=== PATIENT | male | born 1950 | race Two or more races ===

== ENCOUNTER 2016-10-30 16:41 | Emergency (ER) | payer MEDICARE, BC ==
[2016-10-30] MEDS ORDERED: HYDROCODONE/APAP 7.5/325MG TABLET PO ONE (17:04)
--- NOTE | 2016-10-30 17:04 | Emergency Department Record ---
History of Present Illness - General Chief complaint: Flank Pain Stated complaint: FLANK PAIN Time Seen by Provider: 10/30/16 16:57 Source: Patient, Family Mode of Arrival: Wheelchair Limitations: No limitations - History of Present Illness Initial comments: 66 yo male presents with right flank pain for about the last 3 weeks. No vomiting. No obvious blood in the urine. He has a history of ESRD on HD. He had dialysis today. No cough. NO fevers or chills. He has had back adjustments but he pain has continued. The pain initially started getting out of a truck and he feels like something pulled. The pain is constant and worse with movements. He saw his PCP Dr Chand on Tuesday. The patient states the thought at that time was the pain is in the muscles likely. No rash. No changes in appetite. MD Complaint: Other (Right flank pain) Onset/Timin -: Days(s) Location: Right flank Radiation: Suprapubic, R flank Severity scale (1-10): 9 Quality: Burning, Sharp Consistency: Constant Improves with: None Worsens with: None Reports: Denies other symptoms, Urinary retention, Other - Related Data Home Medications Medication Instructions Recorded Confirmed Last Taken Sevelamer Carbonate [Renvela] 800 mg PO TID 07/19/15 10/30/16 10/30/16 Hydralazine HCl 50 mg PO DAILY 11/12/15 10/30/16 10/30/16 Insulin Aspart [Novolog] 1 unit SQ ASDIR 11/12/15 10/30/16 10/30/16 Insulin NPH Human Isophane 40 unit SQ BID 11/12/15 10/30/16 10/30/16 [Humulin N] Atorvastatin Calcium [Lipitor] 10 mg PO QHS 03/06/16 10/30/16 10/30/16 Carvedilol [Carvedilol] 25 mg PO BID 03/06/16 10/30/16 10/30/16 Clopidogrel Bisulfate [Plavix] 75 mg PO DAILY 03/06/16 10/30/16 10/29/16 Gabapentin [Gabapentin] 200 mg PO QHS 03/06/16 10/30/16 10/29/16 Losartan Potassium [Cozaar] 100 mg PO DAILY 03/06/16 10/30/16 10/30/16 Quetiapine Fumarate [Seroquel] 25 mg PO QHS 03/06/16 10/30/16 10/29/16 Previous Rx's Medication Instructions Recorded Hyoscyamine Sulfate [Levsin-Sl] 0.25 mg SL Q8H PRN #15 tab.subl 03/09/16 Ondansetron [Zofran Odt] 4 mg PO Q6H PRN #20 tab.rapdis 03/09/16 Cephalexin [Keflex] 500 mg PO TID #21 cap 10/30/16 Hydrocodone/Acetaminophen [[place] 0.5 - 1 tab PO TID PRN #12 tab 10/30/16 5mg/325mg] Allergies Allergy/AdvReac Type Severity Reaction Status Date / Time codeine [CODEINE] Allergy Intermediate RASH Verified 11/12/15 15:14 hydrocodone [HYDROCODONE] Allergy Intermediate RASH Verified 11/12/15 15:14 propoxyphene [PROPOXYPHENE] Allergy Intermediate RASH Verified 11/12/15 15:14 Travel Screening - Travel/Exposure Within Last 30 Days Have you traveled within the last 30 days?: No - Travel/Exposure Within Last Year Have you traveled outside the [place] in the last year?: No - Additonal Travel Details Have you been exposed to anyone with a communicable illness?: No Review of Systems Constitutional: Denies: Chills, Fever, Malaise, Weakness Eyes: Denies: Eye discharge, Eye pain, Photophobia, Vision change ENT: Denies: Congestion, Throat pain Respiratory: Denies: Cough, Dyspnea, Hemoptysis, Stridor, Wheezes Cardiovascular: Denies: Chest pain, Palpitations, Syncope Endocrine: Denies: Fatigue Gastrointestinal: Denies: Abdominal pain, Diarrhea, Nausea, Vomiting Genitourinary: Denies: Dysuria, Frequency, Hematuria Musculoskeletal: Reports: Back pain, Myalgia. Denies: Arthralgia, Joint swelling, Neck pain Skin: Denies: Bruising, Change in color, Rash Neurological: Denies: Headache Psychiatric: Denies: Anxiety Hematological/Lymphatic: Denies: Blood Clots, Easy bleeding, Easy bruising, Swollen glands Past Medical History - SOCIAL HISTORY Smoking Status: Never smoker Alcohol Use: None Drug Use: None - RESPIRATORY Hx Respiratory Disorders: Yes - CARDIOVASCULAR Hx Cardio Disorders: Yes Hx CHF: Yes Hx Edema: Yes Hx Hypertension: Yes - NEURO Hx Neuro Disorders: No - GI Hx GI Disorders: Yes Hx Hepatitis/Jaundice: Yes (hepatitis C) - Hx Genitourinary Disorders: Yes Hx Renal Disease: Yes Hx UTI: Yes (recently) Comment:: On Dialysis 3 times a week - ENDOCRINE Hx Endocrine Disorders: Yes Hx Diabetes: Yes - MUSCULOSKELETAL Hx Musculoskeletal Disorders: Yes Hx Arthritis: Yes (hands) - PSYCH Hx Psych Problems: No - HEMATOLOGY/ONCOLOGY Hx Hematology/Oncology Disorders: No Hx Blood Transfusions: No Family Medical History Any Significant Family History?: No Hx Diabetes: Mother, Brother/Sister Hx HTN: Father, Brother/Sister Hx Stroke: Mother, Brother/Sister Physical Exam - General General Appearance: Alert, Oriented x3, Cooperative, No acute distress Limitations: No limitations - Head Head exam: Normal inspection - Eye Eye exam: Normal appearance. negative: Conjunctival injection - ENT ENT exam: Normal exam Ear exam: Normal external inspection Nasal Exam: Normal inspection Mouth exam: Normal external inspection - Neck Neck exam: Normal inspection, Full ROM. negative: Tenderness - Respiratory Respiratory exam: Normal lung sounds bilaterally. negative: Respiratory distress - Cardiovascular Cardiovascular Exam: Regular rate, Normal rhythm, Normal heart sounds, Other ( right upper extremety fistula intact) - GI/Abdominal GI/Abdominal exam: Soft. negative: Diminished bowel sounds, Distended, Hyperactive bowel sounds, Rigid, Tenderness - Rectal Rectal exam: Deferred - exam: Deferred - Extremities Extremities exam: Normal inspection, Full ROM, Normal capillary refill, Other ( RBKA). negative: Tenderness - Back Back exam: Reports: CVA tenderness (R), Full ROM, Muscle spasm, Paraspinal tenderness, Tenderness. Denies: CVA tenderness (L) Image of Body Front/Back: 1 - normal inspection, no rash, no redness, no swelling, mildly tender to palpation - Neurological Neurological exam: Alert, Oriented X3 - Psychiatric Psychiatric exam: Normal affect, Normal mood - Skin Skin exam: Dry, Intact, Normal color, Warm Course - Reevaluation(s) Reevaluation #1: Vitals reviewed No fever 10/30/16 17:07 Reevaluation #2: UA reviewed. Protein present, Large Blood, trace LE 10/30/16 17:43 Reevaluation #3: Micro UA with few bacteria, 15-20 WBC, 10/30/16 18:21 Reevaluation #4: The CT scan report was reviewed. No acute findings. Cirrhosis, varices, cholelithiasis, intra-renal stone noted. No acute process or changes. 10/30/16 18:47 Reevaluation #5: ammonia is 11 CR is 2.8 The LFT's were negative The patient does not have a fever, no elevated WBC count, renal function and hepatic function at baseline He is to call Dr Chand first of the week to discuss his ongoing back for the last 3 weeks. 10/30/16 18:54 10/30/16 18:57 Medical Decision Making - Lab Data Result diagrams: 10/30/16 17:40 10/30/16 18:15 Disposition Disposition: Discharge Clinical Impression: Back pain Qualifiers: Back pain location: low back pain Chronicity: acute Back pain laterality: right Sciatica presence: without sciatica Qualified Code(s): M54.5 - Low back pain Urinary tract infection Qualifiers: Urinary tract infection type: acute cystitis Hematuria presence: with hematuria Qualified Code(s): N30.01 - Acute cystitis with hematuria Disposition: Home, Self-Care Condition: (1) Good Instructions: Flank Pain (ED), Urinary Tract Infection in Men (ED) Additional Instructions: Return if worse, uncontrolled pain, fever, vomiting, rash, or any new concerns or symptoms Call Dr Chand Tuesday for close follow up Prescriptions: Cephalexin [Keflex] 500 mg PO TID #21 cap Hydrocodone/Acetaminophen [[place] 5mg/325mg] 0.5 - 1 tab PO TID PRN #12 tab PRN Reason: Pain - General Forms: Patient Portal Access Time of Disposition: 18:58
[2016-10-30 17:32] LABS: URINE BILIRUBIN SMALL (NEGATIVE); URINE BLOOD LARGE (NEGATIVE); URINE GLUCOSE (UA) NEGATIVE (NEGATIVE); URINE KETONE NEGATIVE (NEGATIVE); URINE LEUKOCYTE ESTERASE TRACE (NEGATIVE); URINE NITRITE NEGATIVE (NEGATIVE); URINE UROBILINOGEN 0.2 E.U./dL (0.20 - 1.00)
[2016-10-30 17:34] LABS: URINE APPEARANCE SL CLOUDY; URINE COLOR STRAW
[2016-10-30 17:45] LABS: URINE BACTERIA FEW; URINE RBC >50 (NONE SEEN); URINE WBC 16 - 20 (0-2/hpf)
[2016-10-30 17:46] LABS: URINE FINE GRANULAR CAST FEW /lpf
[2016-10-30 18:15] LABS: HEMATOCRIT 38.8 % (42.0-52.0); HEMOGLOBIN 12.5 gm/dl (14.0-18.0); MEAN CELL VOLUME 89.2 fl (81-97); MEAN CORPUSCULAR HEMOGLOBIN 28.7 pg (27-33); MEAN CORPUSCULAR HGB CONC 32.2 g/dl (32-36); MEAN PLATELET VOLUME 10.7 fl (7.4-10.4); PLATELET COUNT 70 K/uL (130-400); RED BLOOD COUNT 4.35 M/uL (4.40-5.70); RED CELL DISTRIBUTION WIDTH 16.5 % (11.5-14.5); WHITE BLOOD COUNT W/O DIFF 6.1 K/uL (4.2-12.2)
[2016-10-30 18:51] LABS: AMMONIA 11.9 umol/L (9-30); ANION GAP 9.6 (7-16); CARBON DIOXIDE 29.4 mmol/L (22-30); CREATININE 2.8 mg/dL (0.66-1.25)
[2016-10-30 18:54] LABS: TOTAL PROTEIN 8.2 gm/dL (6.3-8.2)
[2016-10-30 18:55] LABS: PLATELET ESTIMATE DECREASED (NORMAL)
[2016-10-30 18:55] LABS: ALBUMIN 3.5 gm/dL (3.5-5.0); BILIRUBIN,TOTAL 1.4 mg/dL (0.2-1.3)
[2016-10-30] MEDS ORDERED: CEPHALEXIN 500 MG CAPSULE PO STA (18:55)
== END 2016-10-30 19:11 | disposition home or self-care (01) ==
LOC: ER 16:41
DX: N30.01 Acute cystitis with hematuria (principal); M54.5 Low back pain; R10.31 Right lower quadrant pain
CPT/HCPCS: 74176; 80048; 80076; 81001; 82140; 85027; 99283; 99284

== ENCOUNTER 2017-02-23 21:30 | Emergency (ER) | payer MEDICARE, BC ==
[2017-02-23] MEDS ORDERED: ONDANSETRON HCL IV 4 MG/2 ML VIAL IVP ONE (21:38)
[2017-02-23] MEDS ORDERED: MORPHINE SULFATE 5 MG/ML PFS IVP ONE (21:38)
--- NOTE | 2017-02-23 21:43 | Emergency Department Record ---
History of Present Illness - General Chief Complaint: Back Pain/Injury Stated Complaint: LOWER RT BACK PAIN Time Seen by Provider: 02/23/17 21:37 Source: Patient Mode of Arrival: Wheelchair Limitations: No limitations - History of Present Illness Initial Comments: 66 yo male presents to ED with a CC of left sided flank pain that has become progressively worse since yesterday. Patient denies nausea or vomiting symptoms , denies fevers, chills, or urinary symptoms. Patient denies trauma or injury. Patient denies previous history of kidney stones. Patient reports that he received dialysis yesterday and is due tomorrow. MD Complaint: Back pain Onset/Timin -: Days(s) Similar Symptoms Previously: No Radiation: None Severity: Moderate Quality: Aching Consistency: Constant Improves With: None Worsens With: Movement Context: Unknown Associated Symptoms: Denies other symptoms - Related Data Home Medications Medication Instructions Recorded Confirmed Last Taken Sevelamer Carbonate [Renvela] 800 mg PO BID 07/19/15 02/23/17 10/30/16 Insulin Aspart [Novolog] 1 unit SQ ASDIR 11/12/15 02/23/17 10/30/16 Insulin NPH Human Isophane 40 unit SQ BID 11/12/15 02/23/17 10/30/16 [Humulin N] Atorvastatin Calcium [Lipitor] 10 mg PO QHS 03/06/16 02/23/17 10/30/16 Carvedilol [Carvedilol] 12.5 mg PO BID 03/06/16 02/23/17 10/30/16 Clopidogrel Bisulfate [Plavix] 75 mg PO DAILY 03/06/16 02/23/17 10/29/16 Gabapentin [Gabapentin] 200 mg PO QHS 03/06/16 02/23/17 10/29/16 Quetiapine Fumarate [Seroquel] 25 mg PO QHS 03/06/16 02/23/17 10/29/16 Clonidine HCl 0.1 mg PO BID 02/23/17 02/23/17 Unknown Doxycycline Hyclate [Doxycycline] 100 mg PO BID 02/23/17 02/23/17 Unknown Gabapentin [Neurontin] 100 mg PO TID 02/23/17 02/23/17 Unknown Lactulose [Lactulose] 10 gm PO ASDIR 02/23/17 02/23/17 Unknown Levetiracetam [Keppra] 250 mg PO ASDIR 02/23/17 02/23/17 Unknown Levetiracetam [Keppra] 500 mg PO BID 02/23/17 02/23/17 Unknown Previous Rx's Medication Instructions Recorded Ondansetron [Zofran Odt] 4 mg PO Q6H PRN #20 tab.rapdis 03/09/16 Hydrocodone/Acetaminophen [[place] 0.5 - 1 tab PO TID PRN #12 tab 10/30/16 5mg/325mg] Hydrocodone/Acetaminophen [[place] 1 each PO Q6H PRN #10 tablet 02/23/17 5-325 Tablet] Allergies Allergy/AdvReac Type Severity Reaction Status Date / Time codeine [CODEINE] Allergy Intermediate RASH Verified 11/12/15 15:14 propoxyphene [PROPOXYPHENE] Allergy Intermediate RASH Verified 11/12/15 15:14 Review of Systems Constitutional: Denies: Chills, Fever, Malaise, Night sweats Eyes: Denies: Eye discharge, Eye pain ENT: Denies: Congestion, Ear pain, Epistaxis Respiratory: Denies: Cough, Dyspnea Cardiovascular: Denies: Chest pain, Dyspnea on exertion Endocrine: Denies: Fatigue, Heat or cold intolerance Gastrointestinal: Denies: Abdominal pain, Nausea, Vomiting Genitourinary: Denies: Dysuria, Frequency, Hematuria, Testicular pain, Testicular mass Musculoskeletal: Reports: Back pain. Denies: Arthralgia, Gout, Joint swelling Skin: Denies: Bruising, Change in color Neurological: Denies: Abnormal gait, Confusion, Headache, Seizure Psychiatric: Denies: Anxiety Hematological/Lymphatic: Denies: Anemia, Blood Clots Past Medical History - SOCIAL HISTORY Smoking Status: Never smoker Drug Use: None - RESPIRATORY Hx Respiratory Disorders: Yes - CARDIOVASCULAR Hx Cardio Disorders: Yes Hx CHF: Yes Hx Edema: Yes Hx Hypertension: Yes - NEURO Hx Neuro Disorders: No - GI Hx GI Disorders: Yes Hx Hepatitis/Jaundice: Yes (hepatitis C) - Hx Genitourinary Disorders: Yes Hx Renal Disease: Yes Hx UTI: Yes (recently) Comment:: On Dialysis 3 times a week - ENDOCRINE Hx Endocrine Disorders: Yes Hx Diabetes: Yes - MUSCULOSKELETAL Hx Musculoskeletal Disorders: Yes Hx Arthritis: Yes (hands) - PSYCH Hx Psych Problems: No - HEMATOLOGY/ONCOLOGY Hx Hematology/Oncology Disorders: No Hx Blood Transfusions: No Family Medical History Hx Diabetes: Mother, Brother/Sister Hx HTN: Father, Brother/Sister Hx Stroke: Mother, Brother/Sister Physical Exam - General General Appearance: Alert, Oriented x3, Cooperative, Moderate distress Limitations: No limitations - Head Head exam: Atraumatic, Normocephalic, Normal inspection Head exam detail: negative: Abrasion, Contusion, Smith's sign, General tenderness, Hematoma, Laceration - Eye Eye exam: Normal appearance. negative: Conjunctival injection, Periorbital swelling, Periorbital tenderness, Scleral icterus - ENT Ear exam: negative: Auricular hematoma, Auricular trauma Nasal Exam: negative: Active bleeding, Discharge, Dried blood, Foreign body Mouth exam: negative: Drooling, Laceration, Muffled voice, Tongue elevation - Neck Neck exam: Normal inspection. negative: Meningismus, Tenderness - Respiratory Respiratory exam: Normal lung sounds bilaterally. negative: Rales, Respiratory distress, Rhonchi, Stridor - Cardiovascular Cardiovascular Exam: Regular rate, Normal rhythm, Normal heart sounds - GI/Abdominal GI/Abdominal exam: Soft. negative: Rebound, Rigid, Tenderness - Rectal Rectal exam: Deferred - exam: Deferred - Extremities Extremities exam: Other (BKA right, fistula RUE.). negative: Pedal edema, Tenderness - Back Back exam: Reports: CVA tenderness (R). Denies: CVA tenderness (L) - Neurological Neurological exam: Alert, Oriented X3 - Psychiatric Psychiatric exam: Normal affect, Normal mood - Skin Skin exam: Normal color. negative: Abrasion Type of lesion: negative: abrasion Course - Reevaluation(s) Reevaluation #1: 02/23/17 22:17 Labs reviewed, Hgb 10.6, BUN/Creatinine 43/6.2. Glucose 468. UA pending. CT Abdomen and Pelvis: Mild left sided hydronephrosis without evidence for ureteral calculus, may represent recently passed stone. Splenomegaly ( unchanged from previous), atheromatis disease. 02/23/17 22:21 Reevaluation #2: 02/23/17 22:37 UA reviewed: 16-25 RBCs, 3-5 WBCs, 3+ amorphous sediment, no bacteria are present. Patient reassessed and reports almost no pain at this time. Patient and his were updated on all results and the plan for discharge at this time. Patient appears stable for discharge. Medical Decision Making - Lab Data Result diagrams: 02/23/17 21:50 02/23/17 21:50 Disposition Disposition: Discharge Clinical Impression: Flank pain CRF (chronic renal failure) Qualifiers: Chronic kidney disease stage: stage 5 Qualified Code(s): N18.5 - Chronic kidney disease, stage 5 Disposition: Home, Self-Care Condition: (2) Stable Instructions: Flank Pain (ED) Additional Instructions: Return to ED if your symptoms worsen or if you have any concerns. Follow-up with your family doctor in 3-5 days as directed. Troy as directed. Prescriptions: Hydrocodone/Acetaminophen [[place] 5-325 Tablet] 1 each PO Q6H PRN #10 tablet PRN Reason: Pain - Moderate (5-7) Forms: Patient Portal Access Time of Disposition: 22:41 Quality - Quality Measures Quality Measures: N/A - Blood Pressure Screening Blood Pressure Classification: Pre-Hypertensive BP Reading Systolic Measurement: 187 Diastolic Measurement: 80 Screening for High Blood Pressure: < First Hypertensive BP, F/U Documented > [ [id number]] First Hypertensive Follow-up Interventions: Referral to alternative/primary care provider.
[2017-02-23 22:02] LABS: HEMATOCRIT 32.2 % (42.0-52.0); HEMOGLOBIN 10.6 gm/dl (14.0-18.0); MEAN CELL VOLUME 93.9 fl (81-97); MEAN CORPUSCULAR HEMOGLOBIN 30.9 pg (27-33); MEAN CORPUSCULAR HGB CONC 32.9 g/dl (32-36); MEAN PLATELET VOLUME 10.9 fl (7.4-10.4); PLATELET COUNT 74 K/uL (130-400); RED BLOOD COUNT 3.43 M/uL (4.40-5.70); RED CELL DISTRIBUTION WIDTH 15.4 % (11.5-14.5); WHITE BLOOD COUNT W/O DIFF 4.7 K/uL (4.2-12.2)
[2017-02-23 22:08] LABS: ALB/GLOB RATIO 0.7 (1.1-1.8); ALBUMIN 3.3 gm/dL (3.5-5.0); BILIRUBIN,TOTAL 1.47 mg/dL (0.2-1.3); CREATININE 6.2 mg/dL (0.66-1.25); INR 1.12; PROTHROMBIN TIME (PATIENT) 12.1 SECONDS (9.5-12.1)
[2017-02-23 22:23] LABS: URINE APPEARANCE CLEAR; URINE BILIRUBIN NEGATIVE (NEGATIVE); URINE BLOOD LARGE (NEGATIVE); URINE COLOR YELLOW; URINE KETONE NEGATIVE (NEGATIVE); URINE LEUKOCYTE ESTERASE NEGATIVE (NEGATIVE); URINE NITRITE NEGATIVE (NEGATIVE); URINE UROBILINOGEN 0.2 E.U./dL (0.20 - 1.00)
[2017-02-23 22:26] LABS: PLATELET ESTIMATE DECREASED (NORMAL)
[2017-02-23 22:27] LABS: URINE GLUCOSE (UA) >=1000 mg/dL (NEGATIVE)
[2017-02-23 22:36] LABS: URINE AMORPHOUS SEDIMENT 3+; URINE MUCUS LIGHT; URINE RBC 16 - 25 (NONE SEEN)
[2017-02-23] MEDS ORDERED: HYDROCODONE/APAP 5/325MG TABLET PO ONE (22:41)
--- NOTE | 2017-02-24 14:51 | CT SCAN REPORT ---
EXAM: CT OF THE ABDOMEN AND PELVIS WITHOUT CONTRAST HISTORY: LEFT FLANK PAIN. TECHNIQUE: CT of the abdomen and pelvis was performed without oral or IV contrast. This limits evaluation of bowel and solid visceral organs. Comparison: Prior CT from 10/30/16. FINDINGS: Limited evaluation of the lung bases shows gynecomastia. Atheromatous change of the thoracic aorta. Nodular, cirrhotic change to the liver. Multiple gallstones. Splenic granulomata. The spleen is enlarged, measuring 20 cm in length. Stable nodularity of the left adrenal gland. Limited evaluation of the pancreas is grossly unremarkable. Extensive varices of the upper abdomen. Multiple esophageal varices are also present. Punctate nonobstructing renal calculi bilaterally. In addition there is moderate left sided hydronephrosis and hydroureter, without definitive distal left ureteral calculus. Findings could relate to a recently passed stone. Correlate with urinalysis. Abundant stool in the colon. Occasional sigmoid diverticula without CT evidence for diverticulitis. Fat containing left inguinal hernia. The prostate is mildly enlarged. Rather extensive atheromatous change. IMPRESSION: 1. CIRRHOTIC CHANGE TO THE LIVER, BEFORE. SPLENOMEGALY AT 20 CM. EXTENSIVE VARICES THROUGHOUT THE UPPER ABDOMEN. 2. NONOBSTRUCTING RENAL CALCULI BILATERALLY. MILD LEFT SIDED HYDRONEPHROSIS AND HYDROURETER WITHOUT A DISCREET ETIOLOGY. FINDINGS COULD RELATE TO RECENTLY PASSED STONE. 3. CHOLELITHIASIS. ATHEROMATOUS CHANGE. JOB NUMBER: [id number] [facility]
== END 2017-02-23 22:55 | disposition home or self-care (01) ==
LOC: ER 21:30
DX: R10.32 Left lower quadrant pain (principal); M54.5 Low back pain; E11.22 Type 2 diabetes mellitus with diabetic chronic kidney disease; I12.0 Hypertensive chronic kidney disease with stage 5 chronic kidney disease or end stage renal disease; N18.6 End stage renal disease; N13.2 Hydronephrosis with renal and ureteral calculous obstruction; Z99.2 Dependence on renal dialysis; Z79.4 Long term (current) use of insulin
CPT/HCPCS: 99284 ×2; 96374; 96375; 85610; 80053; 81001; 85027; 74176; J2405; J2270

== ENCOUNTER 2017-03-11 07:27 | Day surgery (SDC) | payer MEDICARE, BC ==
[2017-03-11] MEDS ORDERED: PROPOFOL 10 MG/ML VIAL IV ONE (13:44)
[2017-03-11] MEDS ORDERED: FENTANYL PF 100MCG/2ML VIAL IV ONE (13:44)
[2017-03-11] MEDS ORDERED: LIDOCAINE 2% MDV (20MG/ML) 20ML VIAL IV ONE (13:44)
--- NOTE | 2017-03-17 12:40 | Operative Note ---
DATE OF SURGERY: 03/11/2017 REQUESTING PHYSICIAN: Everardo Chand DO SURGEON: Violeta Kern MD POSTOPERATIVE DIAGNOSES: 1. Grade 2 esophageal varices status post band ligation x 2. 2. Diffuse portal gastropathy. 3. Normal duodenum. 4. Three 6-10 mm sessile ascending colon polyps that were removed by cold snare and snare cautery. 5. A 3 mm colon polyp that was removed by cold biopsy forceps. 6. Grade 1 internal hemorrhoids. OPERATION: 1. ESOPHAGOGASTRODUODENOSCOPY. 2. COLONOSCOPY and exam. REASON FOR PROCEDURE: This is a 66-year-old male with a history of average risk for colorectal cancer and history of cirrhosis of the liver presenting for esophagogastroduodenoscopy for screening for esophageal varices and for colonoscopy. SEDATION: Sedation as per anesthesia. Pulse oximetry was monitored throughout the duration of the procedure to maintain O2 saturation of 90% or greater. Supplemental oxygen was administered via nasal cannula. Cardiac and vital signs were monitored throughout the duration of the procedure and they were stable. PROCEDURE: Description of the procedures of esophagogastroduodenoscopy and colonoscopy, risks and alternatives to the procedures including the risk of bleeding and perforation among others were explained to the patient who voiced understanding and decided to proceed. Physical examination was performed and the patient was found stable for sedation. The patient was then placed in the left lateral position and sedation was initiated. A plastic bite block was inserted into the oral cavity. A lubricated Olympus GIF-180 gastroscope was introduced into the oral cavity and advanced through the proximal esophagus without difficulty. The esophageal mucosa was carefully examined upon insertion of the gastroscope. The proximal esophageal mucosa appeared normal. In the mid and distal esophagus was grade 2 esophageal varices that were noted. The gastroscope was then advanced to the stomach. Serial examination of the stomach revealed diffuse erythema with edema involving the gastric fundus, body, and antrum with erosions in the gastric antrum. The gastroscope was then advanced to the descending duodenum without difficulty. The duodenal bulb and descending duodenal mucosa appeared normal. The gastroscope was then withdrawn into the stomach and retroflexion was performed. There were no other lesions noted. The gastroscope was then straightened and withdrawn, very carefully re-examining the gastric and esophageal mucosa and no other lesions were noted. Multiple gastric biopsies were obtained. Band ligator was then loaded onto the gastroscope and inserted into the distal esophagus and 2 band ligations were performed with no immediate complications. The gastroscope was then withdrawn and the procedure was terminated. The patient tolerated the procedures well without any complications. The patient remained with stable vital signs and was repositioned for colonoscopy. Digital rectal exam was performed and showed small external hemorrhoids with no palpable rectal masses. A lubricated Olympus PCF-180AL colonoscope was then inserted into the rectum under direct visualization and was advanced to the cecum without difficulty. The ileocecal valve and appendiceal orifice were identified and photographed. The colonic mucosa was carefully examined upon insertion of the colonoscope. There were three 6-10 mm sessile polyps in the ascending colon that were removed by cold snare, and a 10 mm one was removed by snare cautery. The colonoscope was then withdrawn while carefully examining the colonic mucosal surfaces. The bowel preparation was good. In the transverse colon was a 3 mm sessile polyp that was noted and was removed by cold biopsy forceps. No other lesions were noted. The colonoscopy was then withdrawn very carefully reexamining the colonic mucosa surfaces. No other lesions were noted. In the rectum on retroflexion, grade 1 internal hemorrhoids were noted. The colonoscope was then withdrawn and the procedure was terminated. The patient tolerated the procedure well without any complications. The patient remained with stable vital signs and was sent to the recovery room. PLAN AND RECOMMENDATIONS: 1. He is to continue on his medications. 2. He is to have a repeat colonoscopy for surveillance in 3 or 5 years depending on the histology of the polyps. Thank you for allowing me to participate in the care of this patient. CC: DO TEJINDER Silver
== END 2017-03-11 11:06 | disposition home or self-care (01) ==
LOC: HOP 07:27
PROVIDERS: ATTEND Internal Medicine Gastroenterology
DX: D12.2 Benign neoplasm of ascending colon (principal); D12.3 Benign neoplasm of transverse colon; K64.0 First degree hemorrhoids; K64.4 Residual hemorrhoidal skin tags; I85.00 Esophageal varices without bleeding; I10 Essential (primary) hypertension; E78.00 Pure hypercholesterolemia, unspecified; E11.9 Type 2 diabetes mellitus without complications; Z79.01 Long term (current) use of anticoagulants; Z79.4 Long term (current) use of insulin; Z79.84 Long term (current) use of oral hypoglycemic drugs; G40.909 Epilepsy, unspecified, not intractable, without status epilepticus
CPT/HCPCS: 45385; 45380; 43244; 43239; 00810; 88305; J3010

== ENCOUNTER 2017-06-17 01:12 | Emergency (ER) | payer MEDICARE, BC ==
--- NOTE | 2017-06-17 01:26 | Emergency Department Record ---
History of Present Illness - General Stated complaint: LOW SUGAR Time Seen by Provider: 06/17/17 01:18 Source: Patient, Family Mode of Arrival: Ambulatory Limitations: No limitations - History of Present Illness Initial comments: 67 yo male presents with weakness tonight. He states he has felt somewhat weak all day. He and his state his blood sugar has been running low as well as his blood pressure today. No headaches, no dizziness, no nausea or vomiting. He states he has been eating ok. No chest pain or cough. No shortness of breath. He states with actively he gets light headed. PCP is Dr Chand. The patient initially noticed a change in his health over the last month. 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 Since then he get tire easily, light headed standing, and noted a lower trend in his blood sugars. He is a dialysis patient. His weight has been steady. His BP during dialysis has been low since starting the Propranolol as well. MD Complaint: Generalized weakness -: Days(s) (1) Location: Generalized Severity: Moderate Consistency: Intermittent Improves with: None Worsens with: None Associated Symptoms: Other - Stuart Coma Scale Eye Response: (4) Open spontaneously Motor Response: (6) Obeys commands Verbal Response: (5) Oriented Stuart Total: 15 - Related Data Home Medications Medication Instructions Recorded Confirmed Last Taken Propranolol HCl 10 mg PO TID 06/17/17 06/17/17 Unknown Previous Rx's Medication Instructions Recorded Ondansetron [Zofran Odt] 4 mg PO Q6H PRN #20 tab.rapdis 03/09/16 Hydrocodone/Acetaminophen [[place] 0.5 - 1 tab PO TID PRN #12 tab 10/30/16 5mg/325mg] Hydrocodone/Acetaminophen [[place] 1 each PO Q6H PRN #10 tablet 02/23/17 5-325 Tablet] Allergies Allergy/AdvReac Type Severity Reaction Status Date / Time codeine [CODEINE] Allergy Intermediate RASH Verified 11/12/15 15:14 propoxyphene [PROPOXYPHENE] Allergy Intermediate RASH Verified 11/12/15 15:14 Review of Systems Constitutional: Reports: Malaise, Weakness. Denies: Chills, Fever Eyes: Denies: Eye discharge, Eye pain, Photophobia, Vision change ENT: Denies: Congestion, Throat pain Respiratory: Denies: Cough, Dyspnea, Hemoptysis, Stridor, Wheezes Cardiovascular: Reports: Syncope (lightheaded). Denies: Chest pain, Palpitations Endocrine: Reports: Fatigue Gastrointestinal: Denies: Abdominal pain, Diarrhea, Nausea, Vomiting Genitourinary: Denies: Dysuria, Frequency, Hematuria Musculoskeletal: Denies: Arthralgia, Back pain, Joint swelling, Myalgia Skin: Denies: Bruising, Change in color, Rash Neurological: Reports: Weakness (generalized). Denies: Confusion, Headache, Numbness, Seizure, Tingling, Tremors, Vertigo Psychiatric: Denies: Anxiety Hematological/Lymphatic: Denies: Blood Clots, Easy bleeding, Easy bruising, Swollen glands Past Medical History - SOCIAL HISTORY Smoking Status: Never smoker - RESPIRATORY Hx Respiratory Disorders: Yes - CARDIOVASCULAR Hx Cardio Disorders: Yes Hx CHF: Yes Hx Edema: Yes Hx Hypertension: Yes - NEURO Hx Neuro Disorders: No - GI Hx GI Disorders: Yes Hx Hepatitis/Jaundice: Yes (hepatitis C) - Hx Genitourinary Disorders: Yes Hx Renal Disease: Yes Hx UTI: Yes (recently) Comment:: On Dialysis 3 times a week - ENDOCRINE Hx Endocrine Disorders: Yes Hx Diabetes: Yes - MUSCULOSKELETAL Hx Musculoskeletal Disorders: Yes Hx Arthritis: Yes (hands) Hx Gout: Yes - PSYCH Hx Psych Problems: No - HEMATOLOGY/ONCOLOGY Hx Hematology/Oncology Disorders: No Hx Blood Transfusions: No Family Medical History Hx Diabetes: Mother, Brother/Sister Hx HTN: Father, Brother/Sister Hx Stroke: Mother, Brother/Sister Physical Exam - General General Appearance: Alert, Oriented x3, Cooperative, No acute distress Limitations: No limitations - Head Head exam: Atraumatic, Normocephalic, Normal inspection - Eye Eye exam: Normal appearance. negative: Conjunctival injection - ENT ENT exam: Normal exam, Mucous membranes moist Ear exam: Normal external inspection Nasal Exam: Normal inspection Mouth exam: Normal external inspection - Neck Neck exam: Normal inspection, Full ROM. negative: Tenderness - Respiratory Respiratory exam: Normal lung sounds bilaterally. negative: Respiratory distress, Rhonchi, Stridor, Wheezes - Cardiovascular Cardiovascular Exam: Regular rate, Normal rhythm, Normal heart sounds Peripheral Pulses: 2+: Radial (R), Radial (L) - GI/Abdominal GI/Abdominal exam: Soft. negative: Tenderness - Rectal Rectal exam: Deferred - exam: Deferred - Extremities Extremities exam: Normal inspection, Full ROM, Normal capillary refill. negative: Tenderness - Back Back exam: Reports: Normal inspection, Full ROM. Denies: Muscle spasm, Rash noted, Tenderness - Neurological Neurological exam: Alert, CN II-XII intact, Normal gait, Oriented X3 - Psychiatric Psychiatric exam: Normal affect, Normal mood - Skin Skin exam: Dry, Intact, Normal color, Warm Course - Reevaluation(s) Reevaluation #1: Accu check was 64 06/17/17 01:25 06/17/17 01:40 EKG 01:28 NSR rate 63, axis L, intervals QT 490, ST no acute changes. No significant changes from 11/10/13 06/17/17 01:41 The CBC was reviewed. He has chronic stable anemia with Hgb of 11 06/17/17 01:49 The orthostatics were reviewed The patient was orthostatic with BP standing of 75/44 06/17/17 01:50 Serum glucose was 52 The patient was given juice and a meal tray. After the juice his BS was 84 06/17/17 01:53 06/17/17 02:04 We discussed that Propranolol could contribute to the symptoms he is having. I recommended temporary hold on this medication until a recheck with Dr Chand on Tuesday. He has a scheduled appointment. 06/17/17 02:34 The accu check is 111 The patient is doing very well eager to be DC home. 06/17/17 02:36 BP is 103/56. The patient is asymptomatic 06/17/17 02:47 The patient again eager to go home He is asymptomatic. We discussed again holding the Propranolol and close following sugars for the He will see Dr Chand on Tuesday. Medical Decision Making - Lab Data Result diagrams: 06/17/17 01:20 06/17/17 01:20 Disposition Disposition: Discharge Clinical Impression: Orthostatic hypotension, Hypoglycemia Chronic renal failure Qualifiers: Chronic kidney disease stage: unspecified stage Qualified Code(s): N18.9 - Chronic kidney disease, unspecified Disposition: Home, Self-Care Condition: (1) Good Instructions: Hypoglycemia in a Person with Diabetes (ED) Additional Instructions: Avoid getting up too quickly Stop your Propranolol the rest of the Follow up with Dr Chand on Tuesday as scheduled Return if you have any return of your symptoms of low blood sugar and low blood pressure. Check your sugars 3 times daily Forms: Patient Portal Access Time of Disposition: 02:45 Quality - Quality Measures Quality Measures: N/A - Blood Pressure Screening Does Patient Have Any of the Following: No Blood Pressure Classification: Hypertensive Reading Systolic Measurement: 149 Diastolic Measurement: 70 Screening for High Blood Pressure: < Pre-Hypertensive BP, F/U Documented > [ [id number]] Pre-Hypertensive Follow-up Interventions: Referral to alternative/primary care provider.
[2017-06-17 01:34] LABS: BASO % 0.9 % (0-6); EOS % 2.8 % (0-6); GRAN % 54.7 % (47-80); HEMATOCRIT 33.2 % (42.0-52.0); HEMOGLOBIN 11.3 gm/dl (14.0-18.0); LYMPH % 27.1 % (16-45); MEAN CELL VOLUME 92.7 fl (81-97); MEAN PLATELET VOLUME 10.1 fl (7.4-10.4); MONO % 14.5 % (0-9); PLATELET COUNT 80 K/uL (130-400); RED BLOOD COUNT 3.58 M/uL (4.40-5.70); RED CELL DISTRIBUTION WIDTH 14.8 % (11.5-14.5); WHITE BLOOD COUNT W/O DIFF 5.4 K/uL (4.2-12.2)
[2017-06-17 01:36] LABS: MEAN CORPUSCULAR HEMOGLOBIN 31.5 pg (27-33)
[2017-06-17 01:40] LABS: INR 1.08; PROTHROMBIN TIME (PATIENT) 11.7 SECONDS (9.5-12.1)
[2017-06-17 01:41] LABS: BILIRUBIN,TOTAL 1.3 mg/dL (0.2-1.0); CREATININE 7.2 mg/dL (0.7-1.2)
[2017-06-17 01:42] LABS: TOTAL PROTEIN 8.8 g/dL (6.6-8.7)
[2017-06-17 01:47] LABS: ALB/GLOB RATIO 0.6 (1.1-1.8); ALBUMIN 3.3 g/dL (4.0-5.0)
[2017-06-17] MEDS ORDERED: SODIUM CHLORIDE 0.9% 500 ML IV ONE ×2 (01:49→01:54)
== END 2017-06-17 02:54 | disposition home or self-care (01) ==
LOC: ER 01:12
DX: I95.1 Orthostatic hypotension (principal); R53.1 Weakness; R52 Pain, unspecified; E11.649 Type 2 diabetes mellitus with hypoglycemia without coma; I12.0 Hypertensive chronic kidney disease with stage 5 chronic kidney disease or end stage renal disease; N18.6 End stage renal disease; Z99.2 Dependence on renal dialysis; Z79.4 Long term (current) use of insulin
CPT/HCPCS: 36416; 80053; 82948; 83735; 85025; 85610; 85730; 93005; 93010; 99284

== ENCOUNTER 2019-02-15 23:26 | Emergency (ER) | payer MEDICARE, BC ==
[2019-02-15] MEDS ORDERED: ALBUTEROL SULFATE (0.083%) 2.5 MG/3 ML NEB INH ONE ×2 (23:51→23:54)
[2019-02-15 23:55] LABS: ABSOLUTE NEUTROPHIL COUNT 2.32; HEMATOCRIT 32.4 % (42.0-52.0); HEMOGLOBIN 10.1 gm/dl (14.0-18.0); MEAN CORPUSCULAR HGB CONC 31.2 g/dl (32-36); MEAN PLATELET VOLUME 11.1 fl (7.4-10.4); PLATELET COUNT 66 K/uL (130-400); RED CELL DISTRIBUTION WIDTH 16.4 % (11.5-14.5); WHITE BLOOD COUNT W/O DIFF 3.6 K/uL (4.2-12.2)
[2019-02-16] MEDS ORDERED: LORAZEPAM 2 MG/ML VIAL IV ONE (00:07)
--- NOTE | 2019-02-16 00:16 | Emergency Department Record ---
History of Present Illness - General Chief Complaint: Shortness of breath Stated Complaint: ALLEN Time Seen by Provider: 02/15/19 23:44 Source: Patient Mode of Arrival: Ambulatory Limitations: No limitations - History of Present Illness Initial Comments: pt feels sob. he had dialysis today and feels like he cant take a deep breath. they took the same amt off that they always do. he states he feels anxious. pt states he did feel a pain in his chest earlier tonight Complaint: Shortness of breath Onset/Timin -: Hour(s) Severity: Mild Severity scale (1-10): 2 Quality: Other Consistency: Constant Improves With: Nothing Worsens With: Nothing Known History Of: Congestive heart failure, Diabetes Associated Symptoms: Chest pain Treatments Prior to Arrival: None - Related Data Home Oxygen Therapy: No Home Medications Medication Instructions Recorded Confirmed Last Taken Amlodipine Besylate [Norvasc] 1 tab PO DAILY PRN MDD 5 MG 02/15/19 02/15/19 Unknown Allergies Allergy/AdvReac Type Severity Reaction Status Date / Time codeine [CODEINE] Allergy Intermediate RASH Verified 02/15/19 23:36 propoxyphene [PROPOXYPHENE] Allergy Intermediate RASH Verified 02/15/19 23:36 Travel Screening - Travel/Exposure Within Last 30 Days Have you traveled within the last 30 days?: No - Travel/Exposure Within Last Year Have you traveled outside the [place] in the last year?: No - Additonal Travel Details Have you been exposed to anyone with a communicable illness?: No - Travel Symptoms Symptom Screening: None Review of Systems Reviewed: No additional complaints except as noted below Constitutional: Reports: As per HPI. Denies: Chills, Fever, Malaise, Night sweats, Weakness, Weight change Eyes: Reports: As per HPI. Denies: Eye discharge, Eye pain, Photophobia, Vision change ENT: Reports: As per HPI. Denies: Congestion, Dental pain, Ear pain, Epistaxis, Hearing loss, Throat pain Respiratory: Reports: As per HPI. Denies: Cough, Dyspnea, Hemoptysis, Stridor, Wheezes Cardiovascular: Reports: As per HPI, Chest pain. Denies: Arrhythmia, Dyspnea on exertion, Edema, Murmurs, Orthopnea, Palpitations, Paroxysmal nocturnal dyspnea, Rheumatic Fever, Syncope Endocrine: Reports: As per HPI. Denies: Fatigue, Heat or cold intolerance, Polydipsia, Polyuria Gastrointestinal: Reports: As per HPI. Denies: Abdominal pain, Constipation, Diarrhea, Hematemesis, Hematochezia, Melena, Nausea, Vomiting Genitourinary: Reports: As per HPI. Denies: Dysuria, Frequency, Hematuria, Incontinence, Retention, Testicular pain, Testicular mass, Urgency Musculoskeletal: Reports: As per HPI. Denies: Arthralgia, Back pain, Gout, Joint swelling, Myalgia, Neck pain Skin: Reports: As per HPI. Denies: Bruising, Change in color, Change in hair/nails, Lesions, Pruritus, Rash Neurological: Reports: As per HPI. Denies: Abnormal gait, Confusion, Headache, Numbness, Paresthesias, Seizure, Tingling, Tremors, Vertigo, Weakness Psychiatric: Reports: As per HPI. Denies: Anxiety, Auditory hallucinations, Depression, Homicidal thoughts, Suicidal thoughts, Visual hallucinations Hematological/Lymphatic: Reports: As per HPI. Denies: Anemia, Blood Clots, Easy bleeding, Easy bruising, Swollen glands Past Medical History - SOCIAL HISTORY Smoking Status: Never smoker Alcohol Use: None Drug Use: None - RESPIRATORY Hx Respiratory Disorders: Yes - CARDIOVASCULAR Hx Cardio Disorders: Yes Hx CHF: Yes Hx Edema: Yes Hx Hypertension: Yes - NEURO Hx Neuro Disorders: No Hx Seizures: Yes - GI Hx GI Disorders: Yes Hx Hepatitis/Jaundice: Yes (hepatitis C) - Hx Genitourinary Disorders: Yes Hx Renal Disease: Yes Hx UTI: Yes (recently) Comment:: On Dialysis 3 times a week - ENDOCRINE Hx Endocrine Disorders: Yes Hx Diabetes: Yes - MUSCULOSKELETAL Hx Musculoskeletal Disorders: Yes Hx Arthritis: Yes (hands) Hx Gout: Yes - PSYCH Hx Psych Problems: No - HEMATOLOGY/ONCOLOGY Hx Hematology/Oncology Disorders: No Hx Blood Transfusions: No Family Medical History Any Significant Family History?: Yes Hx Diabetes: Mother, Brother/Sister Hx HTN: Father, Brother/Sister Hx Stroke: Mother, Brother/Sister Physical Exam - General General Appearance: Alert, Oriented x3, Cooperative, Mild distress - Head Head exam: Normal inspection - Eye Eye exam: Normal appearance, PERRL, EOMI Pupils: Normal accommodation - ENT ENT exam: Normal exam, Mucous membranes moist, Normal external ear exam, Normal orophraynx Ear exam: Normal external inspection. negative: External canal tenderness Nasal Exam: Normal inspection. negative: Discharge, Sinus tenderness Mouth exam: Normal external inspection, Tongue normal Teeth exam: Normal inspection. negative: Dental caries Throat exam: Normal inspection. negative: Tonsillar erythema, Tonsillar exudate - Neck Neck exam: Normal inspection, Full ROM. negative: Tenderness - Respiratory Respiratory exam: Normal lung sounds bilaterally. negative: Respiratory distress - Cardiovascular Cardiovascular Exam: Regular rate, Normal rhythm, Normal heart sounds - GI/Abdominal GI/Abdominal exam: Soft, Normal bowel sounds. negative: Tenderness - Rectal Rectal exam: Deferred - exam: Deferred - Extremities Extremities exam: Normal inspection, Full ROM, Normal capillary refill. negative: Tenderness - Back Back exam: Reports: Normal inspection, Full ROM. Denies: Muscle spasm, Rash noted, Tenderness - Neurological Neurological exam: Alert, CN II-XII intact, Normal gait, Oriented X3 - Psychiatric Psychiatric exam: Normal affect, Normal mood - Skin Skin exam: Dry, Intact, Normal color, Warm Course Vital Signs 02/15/19 02/15/19 23:28 23:57 Temperature 98.8 F Pulse Rate 70 68 Respiratory 18 18 Rate Blood Pressure 173/76 Pulse Ox 100 97 - Reevaluation(s) Reevaluation #1: 02/16/19 00:48 pt feels better Reevaluation #2: 02/16/19 00:51 pt has no cp and sob is gone Medical Decision Making - Lab Data Result diagrams: 02/15/19 23:52 02/15/19 23:52 Lab Results 02/15/19 02/15/19 02/15/19 Range/Units 23:52 23:52 23:54 WBC 3.6 L (4.2-12.2) K/uL RBC 3.60 L (4.40-5.70) M/uL Hgb 10.1 L (14.0-18.0) gm/dl Hct 32.4 L (42.0-52.0) % MCV 90.0 (81-97) fl MCH 28.0 (27-33) pg MCHC 31.2 L (32-36) g/dl RDW 16.4 H (11.5-14.5) % Plt Count 66 L (130-400) K/uL MPV 11.1 H (7.4-10.4) fl Neutrophils % 66.0 (47-80) % Band Neutrophils % 0.0 (0-5) % Eosinophils % Not Reportable Basophils % Not Reportable Absolute Neutrophils 2.32 Lymphocytes 22.0 (16-45) % Monocytes 10.0 H (0-9) % Basophils 0.0 (0-6) % Eosinophil Count 2.0 (0-6) % Sodium 140 (136-145) mmol/L Potassium 4.0 (3.4-4.5) mmol/L Chloride 101 (98-107) mmol/L Carbon Dioxide 27.0 (22-29) mmol/L Anion Gap 12.0 (7-16) BUN 31 H (8-23) mg/dL Creatinine 5.0 H (0.7-1.2) mg/dL Estimated GFR 12 mL/min Random Glucose 145 H (74-109) mg/dL Calcium 9.6 (8.8-10.2) mg/dL NT-Pro-B Natriuret Pep 9523.00 H Cancelled (<125) pg/mL Disposition Disposition: Transfer Clinical Impression: Elevated troponin Chest pain Qualifiers: Chest pain type: chest pain due to myocardial ischemia Ischemic chest pain type: unstable angina pectoris Qualified Code(s): I20.0 - Unstable angina Chronic renal failure Qualifiers: Chronic kidney disease stage: stage 5 Qualified Code(s): N18.5 - Chronic kidney disease, stage 5 Disposition: Still a Patient at [facility] Transfer To: [facility] Reason For Transfer: chest pain Accepting Physician: dr bethea Time Discussed w/Accepting Physician: 01:42 Forms: Patient Portal Access Quality - Quality Measures Quality Measures: N/A - Blood Pressure Screening Does Patient Have Any of the Following: Active Dx of HTN Blood Pressure Classification: Hypertensive Reading Systolic Measurement: 173 Diastolic Measurement: 76 Screening for High Blood Pressure: Patient Exclusion, Hx of HTN [G9744]
[2019-02-16] MEDS ORDERED: ASPIRIN 81 MG CHEWABLE TABLET PO ONE (00:50)
--- NOTE | 2019-02-16 13:26 | Emergency Department Record ---
History of Present Illness - General Chief Complaint: Shortness of breath Stated Complaint: ALLEN Time Seen by Provider: 02/15/19 23:44 Source: Patient Mode of Arrival: Ambulatory Limitations: No limitations - History of Present Illness Initial Comments: recieved patient from Dr Hyman see previous chart and patient denies chest pain and he admits to SOB and he was resting and ate breakfast without difficulties. Onset/Timin -: Hour(s) Severity: Mild Severity scale (1-10): 2 Quality: Other Consistency: Constant Improves With: Nothing Worsens With: Nothing Known History Of: Congestive heart failure, Diabetes Associated Symptoms: Chest pain Treatments Prior to Arrival: None - Related Data Home Oxygen Therapy: No Home Medications Medication Instructions Recorded Confirmed Last Taken Amlodipine Besylate [Norvasc] 1 tab PO DAILY PRN MDD 5 MG 02/15/19 02/15/19 Unknown Allergies Allergy/AdvReac Type Severity Reaction Status Date / Time codeine [CODEINE] Allergy Intermediate RASH Verified 02/15/19 23:36 propoxyphene [PROPOXYPHENE] Allergy Intermediate RASH Verified 02/15/19 23:36 Travel Screening - Travel/Exposure Within Last 30 Days Have you traveled within the last 30 days?: No - Travel/Exposure Within Last Year Have you traveled outside the [place] in the last year?: No - Additonal Travel Details Have you been exposed to anyone with a communicable illness?: No - Travel Symptoms Symptom Screening: None Review of Systems Constitutional: Reports: As per HPI. Denies: Chills, Fever, Malaise, Night sweats, Weakness, Weight change Eyes: Reports: As per HPI. Denies: Eye discharge, Eye pain, Photophobia, Vision change ENT: Reports: As per HPI. Denies: Congestion, Dental pain, Ear pain, Epistaxis, Hearing loss, Throat pain Respiratory: Reports: As per HPI. Denies: Cough, Dyspnea, Hemoptysis, Stridor, Wheezes Cardiovascular: Reports: As per HPI, Chest pain. Denies: Arrhythmia, Dyspnea on exertion, Edema, Murmurs, Orthopnea, Palpitations, Paroxysmal nocturnal dyspnea, Rheumatic Fever, Syncope Endocrine: Reports: As per HPI. Denies: Fatigue, Heat or cold intolerance, Polydipsia, Polyuria Gastrointestinal: Reports: As per HPI. Denies: Abdominal pain, Constipation, Diarrhea, Hematemesis, Hematochezia, Melena, Nausea, Vomiting Genitourinary: Reports: As per HPI. Denies: Dysuria, Frequency, Hematuria, Incontinence, Retention, Testicular pain, Testicular mass, Urgency Musculoskeletal: Reports: As per HPI. Denies: Arthralgia, Back pain, Gout, Joint swelling, Myalgia, Neck pain Skin: Reports: As per HPI. Denies: Bruising, Change in color, Change in hair/nails, Lesions, Pruritus, Rash Neurological: Reports: As per HPI. Denies: Abnormal gait, Confusion, Headache, Numbness, Paresthesias, Seizure, Tingling, Tremors, Vertigo, Weakness Psychiatric: Reports: As per HPI. Denies: Anxiety, Auditory hallucinations, Depression, Homicidal thoughts, Suicidal thoughts, Visual hallucinations Hematological/Lymphatic: Reports: As per HPI. Denies: Anemia, Blood Clots, Easy bleeding, Easy bruising, Swollen glands Past Medical History - SOCIAL HISTORY Smoking Status: Never smoker Alcohol Use: None Drug Use: None - RESPIRATORY Hx Respiratory Disorders: Yes - CARDIOVASCULAR Hx Cardio Disorders: Yes Hx CHF: Yes Hx Edema: Yes Hx Hypertension: Yes - NEURO Hx Neuro Disorders: No Hx Seizures: Yes - GI Hx GI Disorders: Yes Hx Hepatitis/Jaundice: Yes (hepatitis C) - Hx Genitourinary Disorders: Yes Hx Renal Disease: Yes Hx UTI: Yes (recently) Comment:: On Dialysis 3 times a week - ENDOCRINE Hx Endocrine Disorders: Yes Hx Diabetes: Yes - MUSCULOSKELETAL Hx Musculoskeletal Disorders: Yes Hx Arthritis: Yes (hands) Hx Gout: Yes - PSYCH Hx Psych Problems: No - HEMATOLOGY/ONCOLOGY Hx Hematology/Oncology Disorders: No Hx Blood Transfusions: No Family Medical History Any Significant Family History?: Yes Hx Diabetes: Mother, Brother/Sister Hx HTN: Father, Brother/Sister Hx Stroke: Mother, Brother/Sister Physical Exam - General General Appearance: Alert, Oriented x3, Cooperative, No acute distress Limitations: No limitations - Head Head exam: Normal inspection - Eye Eye exam: Normal appearance, PERRL Pupils: Normal accommodation - ENT ENT exam: Normal exam, Mucous membranes moist, Normal external ear exam, Normal orophraynx, TM's normal bilaterally Ear exam: Normal external inspection. negative: External canal tenderness Nasal Exam: Normal inspection. negative: Discharge, Sinus tenderness Mouth exam: Normal external inspection, Tongue normal Teeth exam: Normal inspection. negative: Dental caries Throat exam: Normal inspection. negative: Tonsillar erythema, Tonsillar exudate - Neck Neck exam: Normal inspection, Full ROM. negative: Tenderness - Respiratory Respiratory exam: Normal lung sounds bilaterally. negative: Respiratory distress - Cardiovascular Cardiovascular Exam: Regular rate, Normal rhythm, Normal heart sounds - GI/Abdominal GI/Abdominal exam: Soft, Normal bowel sounds. negative: Tenderness - Rectal Rectal exam: Deferred - exam: Deferred - Extremities Extremities exam: Normal inspection, Full ROM, Normal capillary refill. negative: Tenderness - Back Back exam: Reports: Normal inspection, Full ROM. Denies: Muscle spasm, Rash noted, Tenderness - Neurological Neurological exam: Alert, Normal gait, Oriented X3, Reflexes normal - Psychiatric Psychiatric exam: Normal affect, Normal mood - Skin Skin exam: Dry, Intact, Normal color, Warm Course Vital Signs 02/15/19 02/15/19 02/16/19 23:28 23:57 02:18 Temperature 98.8 F Pulse Rate 70 68 Pulse Rate [ Left Brachial] Respiratory 18 18 18 Rate Blood Pressure 173/76 Blood Pressure 155/70 [Left Arm] Pulse Ox 100 97 97 02/16/19 02/16/19 02/16/19 05:49 08:10 13:21 Temperature 97.6 F Pulse Rate Pulse Rate [ 68 69 65 Left Brachial] Respiratory 18 18 18 Rate Blood Pressure Blood Pressure 180/76 192/85 160/67 [Left Arm] Pulse Ox 98 100 100 - Reevaluation(s) Reevaluation #1: Patient stable and EMS is here to transport 02/16/19 13:25 Medical Decision Making - Lab Data Result diagrams: 02/15/19 23:52 02/15/19 23:52 Lab Results 02/15/19 02/15/19 02/15/19 Range/Units 23:52 23:52 23:54 WBC 3.6 L (4.2-12.2) K/uL RBC 3.60 L (4.40-5.70) M/uL Hgb 10.1 L (14.0-18.0) gm/dl Hct 32.4 L (42.0-52.0) % MCV 90.0 (81-97) fl MCH 28.0 (27-33) pg MCHC 31.2 L (32-36) g/dl RDW 16.4 H (11.5-14.5) % Plt Count 66 L (130-400) K/uL MPV 11.1 H (7.4-10.4) fl Neutrophils % 66.0 (47-80) % Band Neutrophils % 0.0 (0-5) % Eosinophils % Not Reportable Basophils % Not Reportable Absolute Neutrophils 2.32 Lymphocytes 22.0 (16-45) % Monocytes 10.0 H (0-9) % Basophils 0.0 (0-6) % Eosinophil Count 2.0 (0-6) % Sodium 140 (136-145) mmol/L Potassium 4.0 (3.4-4.5) mmol/L Chloride 101 (98-107) mmol/L Carbon Dioxide 27.0 (22-29) mmol/L Anion Gap 12.0 (7-16) BUN 31 H (8-23) mg/dL Creatinine 5.0 H (0.7-1.2) mg/dL Estimated GFR 12 mL/min Random Glucose 145 H (74-109) mg/dL Calcium 9.6 (8.8-10.2) mg/dL Troponin T 0.193 H* (0-0.010) ng/mL NT-Pro-B Natriuret Pep 9523.00 H Cancelled (<125) pg/mL 02/16/19 Range/Units 05:45 WBC (4.2-12.2) K/uL RBC (4.40-5.70) M/uL Hgb (14.0-18.0) gm/dl Hct (42.0-52.0) % MCV (81-97) fl MCH (27-33) pg MCHC (32-36) g/dl RDW (11.5-14.5) % Plt Count (130-400) K/uL MPV (7.4-10.4) fl Neutrophils % (47-80) % Band Neutrophils % (0-5) % Eosinophils % Basophils % Absolute Neutrophils Lymphocytes (16-45) % Monocytes (0-9) % Basophils (0-6) % Eosinophil Count (0-6) % Sodium (136-145) mmol/L Potassium (3.4-4.5) mmol/L Chloride (98-107) mmol/L Carbon Dioxide (22-29) mmol/L Anion Gap (7-16) BUN (8-23) mg/dL Creatinine (0.7-1.2) mg/dL Estimated GFR mL/min Random Glucose (74-109) mg/dL Calcium (8.8-10.2) mg/dL Troponin T 0.169 H* (0-0.010) ng/mL NT-Pro-B Natriuret Pep (<125) pg/mL Disposition Clinical Impression: Elevated troponin Chest pain Qualifiers: Chest pain type: chest pain due to myocardial ischemia Ischemic chest pain type: unstable angina pectoris Qualified Code(s): I20.0 - Unstable angina Chronic renal failure Qualifiers: Chronic kidney disease stage: stage 5 Qualified Code(s): N18.5 - Chronic kidney disease, stage 5 Disposition: Acute Care Hospital Transfer Forms: Patient Portal Access Quality - Quality Measures Quality Measures: N/A - Blood Pressure Screening Does Patient Have Any of the Following: No, Active Dx of HTN Blood Pressure Classification: Hypertensive Reading Systolic Measurement: 173 Diastolic Measurement: 76 Screening for High Blood Pressure: Patient Exclusion, Hx of HTN [G9744]
--- NOTE | 2019-02-17 16:02 | RADIOLOGY REPORT ---
EXAM: CHEST 2 VIEWS HISTORY: SHORTNESS OF BREATH. CHEST DISCOMFORT ON DEEP INSPIRATION. TECHNIQUE: Upright PA and lateral views of the chest. COMPARISON: Two-view chest radiographic examination dated 12/29/2017. FINDINGS: A dual lumen left internal jugular central venous catheter has been placed in the interval with its tip in the right atrium. The heart is not enlarged. No pulmonary venous hypertension is seen. No new lung consolidation, costophrenic angle blunting, or pneumothorax. There is a 14 mm nodular opacity redemonstrated in the lateral mid to upper right lung. This is unchanged since a 08/19/2014 examination and is likely a benign calcified granuloma. The lungs and pleural spaces are otherwise clear. No acute osseous abnormality. IMPRESSION: 1. DUAL LUMEN INTERNAL JUGULAR CENTRAL VENOUS CATHETER IN PLACE WITH ITS TIP IN THE RIGHT ATRIUM. 2. NO EVIDENCE OF ACUTE CARDIOPULMONARY DISEASE. 3. A 14 MM CALCIFIED GRANULOMA AGAIN NOTED IN THE UPPER RIGHT LUNG, STABLE. JOB NUMBER: [id number] MTDD
== END 2019-02-16 14:56 | disposition short-term general hospital (02) ==
LOC: ER 23:26
DX: I20.0 Unstable angina (principal); I50.9 Heart failure, unspecified; N18.5 Chronic kidney disease, stage 5; Z89.511 Acquired absence of right leg below knee; Z99.2 Dependence on renal dialysis; R79.89 Other specified abnormal findings of blood chemistry; E10.9 Type 1 diabetes mellitus without complications; Z79.4 Long term (current) use of insulin
CPT/HCPCS: 93041; 99285 ×2; 96374; 80048; 84484; 85027; 83880; 71046; 94640; 93005; 93010; J2060; J7613

== ENCOUNTER 2019-04-13 00:12 | Observation (INO) | payer MEDICARE, BC ==
--- NOTE | 2019-04-13 00:22 | Emergency Department Record ---
History of Present Illness - General Chief Complaint: Shortness of breath Stated Complaint: ALLEN Time Seen by Provider: 04/13/19 00:16 Source: Patient, Family Mode of Arrival: Ambulatory Limitations: No limitations - History of Present Illness Initial Comments: 68 yo male states he has felt a feeling of needing to take a deep breath or short of breath for about 2-3 hours. He is a dialysis patient. He did have his full run of dialysis today. No chest pain, cough, fever, syncope. He describes the feeling like he wants to take a deep breath. He is at or just below his normal weight per his weigh in and out at dialysis today. He had similar sympt oms in January and was seen in the ED. No other sudden changes in his health. No pain, no nausea, vomiting, diarrhea. He and his state in January he was transferred to [facility]. He states "they did everything" and did not find a cause for his shortness of breath. He did have a heart cath as well. He and his state it did not show any blockages. No stents were placed. MD Complaint: Shortness of breath -: Hour(s) Severity: Mild Quality: Other Consistency: Intermittent Improves With: Nothing Worsens With: Nothing Known History Of: Other (ESRD) Context: Other Associated Symptoms: Denies other symptoms Treatments Prior to Arrival: None - Related Data Allergies Allergy/AdvReac Type Severity Reaction Status Date / Time codeine [CODEINE] Allergy Intermediate RASH Verified 02/15/19 23:36 propoxyphene [PROPOXYPHENE] Allergy Intermediate RASH Verified 02/15/19 23:36 Review of Systems Constitutional: Denies: Chills, Fever, Malaise, Weakness Eyes: Denies: Eye discharge, Eye pain, Vision change ENT: Denies: Congestion, Throat pain Respiratory: Reports: Dyspnea. Denies: As per HPI, Cough, Hemoptysis, Stridor, Wheezes Cardiovascular: Denies: Arrhythmia, Chest pain, Edema, Palpitations, Syncope Endocrine: Denies: Fatigue, Polydipsia, Polyuria Gastrointestinal: Denies: Abdominal pain, Diarrhea, Nausea, Vomiting Genitourinary: Denies: Dysuria, Frequency, Hematuria Musculoskeletal: Denies: Arthralgia, Back pain, Myalgia Skin: Denies: Bruising, Change in color, Rash Neurological: Denies: Headache, Weakness Psychiatric: Denies: Anxiety Hematological/Lymphatic: Denies: Easy bleeding, Easy bruising, Swollen glands Past Medical History - SOCIAL HISTORY Smoking Status: Never smoker Drug Use: None - RESPIRATORY Hx Respiratory Disorders: Yes - CARDIOVASCULAR Hx Cardio Disorders: Yes Hx CHF: Yes Hx Edema: Yes Hx Hypertension: Yes - NEURO Hx Neuro Disorders: No Hx Seizures: Yes - GI Hx GI Disorders: Yes Hx Hepatitis/Jaundice: Yes (hepatitis C) - Hx Genitourinary Disorders: Yes Hx Renal Disease: Yes Hx UTI: Yes (recently) Comment:: On Dialysis 3 times a week - ENDOCRINE Hx Endocrine Disorders: Yes Hx Diabetes: Yes - MUSCULOSKELETAL Hx Musculoskeletal Disorders: Yes Hx Arthritis: Yes (hands) Hx Gout: Yes - PSYCH Hx Psych Problems: No - HEMATOLOGY/ONCOLOGY Hx Hematology/Oncology Disorders: No Hx Blood Transfusions: No Family Medical History Hx Diabetes: Mother, Brother/Sister Hx HTN: Father, Brother/Sister Hx Stroke: Mother, Brother/Sister Physical Exam - General General Appearance: Alert, Oriented x3, Cooperative, No acute distress, Other (Appears relaxed and comfortable. No conversational dyspnea. ) Limitations: No limitations - Head Head exam: Atraumatic, Normal inspection - Eye Eye exam: Normal appearance, PERRL. negative: Conjunctival injection, Scleral icterus - ENT ENT exam: Normal exam, Mucous membranes moist Ear exam: Normal external inspection Nasal Exam: Normal inspection Mouth exam: Normal external inspection - Neck Neck exam: Normal inspection - Respiratory Respiratory exam: Normal lung sounds bilaterally. negative: Accessory muscle use, Decreased breath sounds, Prolonged expiratory, Respiratory distress, Rhonchi, Stridor, Wheezes - Cardiovascular Cardiovascular Exam: Regular rate, Normal rhythm, Normal heart sounds. negative: Tachycardia Peripheral Pulses: 2+: Radial (R), Radial (L) - GI/Abdominal GI/Abdominal exam: Soft. 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 negative: Calf tenderness, Tenderness - Back Back exam: Denies: CVA tenderness (R), CVA tenderness (L) - Neurological Neurological exam: Alert, Oriented X3 - Psychiatric Psychiatric exam: Normal affect, Normal mood - Skin Skin exam: Dry, Intact, Normal color, Warm Course - Reevaluation(s) Reevaluation #1: 04/13/19 00:21 The patient appears relaxed He is 100% on RA. EKG #1: 00:13 Rate: 68 Rhythm: sinus Benge: left Intervals: MA 218, Qtc 472 ST segments: No acute changes Prior: 02/15/19 No changes on today's EKG 04/13/19 00:25 04/13/19 00:46 The CBC was reviewed Hgb is 7.7 The prior Hgb was 10.1 on February 15. 04/13/19 00:52 The DC summary from [facility] was reviewed. No obstructing lesions on the cath. 04/13/19 00:57 The rectal examination was completed He is Heme Positive with brown stool. No gross blood The patient and his were informed 04/13/19 01:01 The K is 3.8 Mild increase in his glucose, CR is 4.5 consistent with chronic renal failure. The preliminary chest XR was reviewed by va 04/13/19 01:02 04/13/19 01:18 The results were discussed with the patient. I recommend serial CBC's at this time. The patient is relaxed, no abnormal vitals, no immediate indication for emergent transfusion. His GI specialist is at [facility] today 04/13/19 Dr Kern. The patient will be admitted observation for repeat CBC and consultation placed with GI. I explained that if the patient drops his counts or requires admission longer that today he will require transfer given [facility] does not perform dialysis. He understands and requests to remain at [facility] at this time and not be transferred until repeat counts are obtained and GI consultation is complete. 04/13/19 07:43 Dr Chand was made aware of his patient. He states he is leaving [facility] and request to admit the patient The case was discussed with Marsha Mclean CUSTOMER SERVICE CLERK for admission The plan is transfuse one unit and GI consult today Medical Decision Making - Lab Data Result diagrams: 04/13/19 00:20 04/13/19 00:20 Disposition Disposition: Admit Clinical Impression: Chronic renal failure Qualifiers: Chronic kidney disease stage: unspecified stage Qualified Code(s): N18.9 - Chronic kidney disease, unspecified Dyspnea Qualifiers: Dyspnea type: unspecified Qualified Code(s): R06.00 - Dyspnea, unspecified Anemia Qualifiers: Anemia type: unspecified type Qualified Code(s): D64.9 - Anemia, unspecified GI bleed Qualifiers: GI bleed type/associated pathology: unspecified gastrointestinal hemorrhage type Qualified Code(s): K92.2 - Gastrointestinal hemorrhage, unspecified Disposition: Still a Patient at [facility] Decision to Admit: Admit from ER Decision to Admit Date: 04/13/19 Decision to Admit Time: : Condition: (1) Good Time of Disposition: :21 Quality - Quality Measures Quality Measures: N/A - Blood Pressure Screening Does Patient Have Any of the Following: Active Dx of HTN Blood Pressure Classification: Hypertensive Reading Systolic Measurement: 159 Diastolic Measurement: 73 Screening for High Blood Pressure: Patient Exclusion, Hx of HTN [G9744] Pre-Hypertensive Follow-up Interventions: Referral to alternative/primary care provider.
[2019-04-13] MEDS ORDERED: ALBUTEROL SULFATE (0.083%) 2.5 MG/3 ML NEB INH ONE (00:29)
[2019-04-13 00:35] LABS: ABSOLUTE NEUTROPHIL COUNT 1.69; HEMATOCRIT 25.3 % (42.0-52.0); HEMOGLOBIN 7.7 gm/dl (14.0-18.0); MEAN CELL VOLUME 93.4 fl (81-97); MEAN CORPUSCULAR HEMOGLOBIN 28.4 pg (27-33); MEAN CORPUSCULAR HGB CONC 30.4 g/dl (32-36); MEAN PLATELET VOLUME 10.1 fl (7.4-10.4); PLATELET COUNT 80 K/uL (130-400); RED BLOOD COUNT 2.71 M/uL (4.40-5.70); RED CELL DISTRIBUTION WIDTH 15.8 % (11.5-14.5); WHITE BLOOD COUNT W/O DIFF 2.5 K/uL (4.2-12.2)
[2019-04-13 00:41] LABS: BILIRUBIN,TOTAL 0.6 mg/dL (0.2-1.0); CREATININE 4.5 mg/dL (0.7-1.2)
[2019-04-13 00:42] LABS: TOTAL PROTEIN 7.3 g/dL (6.6-8.7)
[2019-04-13 00:47] LABS: ALB/GLOB RATIO 0.8 (1.1-1.8); ALBUMIN 3.3 g/dL (4.0-5.0)
[2019-04-13 01:06] LABS: ANISOCYTOSIS 1+; HYPOCHROMIA 1+; PLATELET ESTIMATE DECREASED (NORMAL)
[2019-04-13] MEDS ORDERED: AMLODIPINE BESYLATE 5MG TAB PO PRN (01:25)
[2019-04-13] MEDS ORDERED: INSULIN ASPART 1 UNIT SQ SCH (01:30)
[2019-04-13] MEDS ORDERED: HUMULIN N KWIKPEN 100 UNIT/ML SQ SCH (07:00)
[2019-04-13] MEDS ORDERED: PANTOPRAZOLE SODIUM IV 40 MG VIAL IV SCH (07:00)
--- NOTE | 2019-04-13 07:25 | RADIOLOGY REPORT ---
EXAM: CHEST, TWO VIEWS HISTORY: SHORTNESS OF BREATH BEGINNING TONIGHT. PATIENT DENIES CHEST PAIN. TECHNIQUE: Upright PA and lateral views of the chest were obtained. Comparison: Two view chest radiographic examination dated 02/16/19. FINDINGS: A dual lumen left internal jugular central venous catheter remains in place with its tip in the right atrium. The heart is not enlarged. No pulmonary venous hypertension is seen. Patchy predominantly linear opacities are noted in each lung base consistent with atelectasis. Minor interstitial edema less likely. No lung consolidation. A 14 mm nodular opacity is again noted projecting at the level of the upper right hemithorax consistent with calcified granuloma. IMPRESSION: 1. DUAL LUMEN LEFT INTERNAL JUGULAR CENTRAL VENOUS CATHETER REMAINS IN PLACE WITH ITS TIP IN THE RIGHT ATRIUM. 2. MINOR PATCHY LINEAR OPACITIES IN THE LATERAL LUNG BASES SUGGESTED CONSISTENT WITH ATELECTASIS OR LESS LIKELY INTERSTITIAL EDEMA. 3. CALCIFIED GRANULOMA REDEMONSTRATED IN THE UPPER RIGHT LUNG. JOB NUMBER: [id number] MTDD
[2019-04-13 07:59] LABS: HEMATOCRIT 24.7 % (42.0-52.0); HEMOGLOBIN 7.4 gm/dl (14.0-18.0); MEAN CELL VOLUME 94.3 fl (81-97); MEAN CORPUSCULAR HEMOGLOBIN 28.2 pg (27-33); MEAN PLATELET VOLUME 10.1 fl (7.4-10.4); PLATELET COUNT 75 K/uL (130-400); RED BLOOD COUNT 2.62 M/uL (4.40-5.70); RED CELL DISTRIBUTION WIDTH 15.7 % (11.5-14.5); WHITE BLOOD COUNT W/O DIFF 2.3 K/uL (4.2-12.2)
[2019-04-13 08:13] LABS: INR 1.3; PARTIAL THROMBOPLASTIN TIME 30.6 SECONDS (24.5-39.1); PROTHROMBIN TIME (PATIENT) 12.9 SECONDS (9.5-12.1)
[2019-04-13 08:23] LABS: ANISOCYTOSIS 1+; HYPOCHROMIA 1+; PLATELET ESTIMATE DECREASED (NORMAL)
[2019-04-13 08:48] LABS: ABO GROUP A
[2019-04-13 08:49] LABS: ANTIBODY SCREEN NEGATIVE (NEGATIVE); IMMED. SPIN CROSSMATCH COMPATIBLE; RH TYPE POSITIVE
[2019-04-13] MEDS ORDERED: SEVELAMER CARBONATE 800 MG PO SCH (10:00)
[2019-04-13] MEDS ORDERED: LEVETIRACETAM 500 MG TABLET PO SCH (10:00)
[2019-04-13] MEDS ORDERED: GABAPENTIN 100 MG CAPSULE PO SCH (10:00)
[2019-04-13] MEDS ORDERED: CARVEDILOL 12.5 MG TABLET PO SCH (10:00)
--- NOTE | 2019-04-13 11:27 | History & Physical ---
History of Present Illness - Date of Service Date of Service for History & Physical: 04/13/19 - History of Present Illness Admitting Diagnosis: anemia with heme positive stools History of Present Illness: 68 y/o chronically ill male presented to ED for feeling the need to take deep breaths alternating with shortness of breath for about 2-3 hours prior to arrival. He is currently on HD, last run was day of ED arrival, no reported difficulties or issues during that run. He is well known to Dr Chand. He denies any chest pain, cough. Had similar symptoms in January 2019, was sent to [facility], had cardiac work up, including heart cath, with no acute cardiac etiology of symptoms noted. He reports no current changes in his health or chronic conditions. No nausea, vomiting, diarrhea. Past medical history includes CHF, HTN, seizure disorder, hepatitis C, ESRD on HD, DM-2,, OA, gout. While in ED VSS stable with slight elevation in BP (154/74), WBC 2.5, Hgb 7.7 (patient reports baseline Hgb 10), PT 12.9, otherwise coag panel normal. NUN 25, Cr 4.5. Random glucose 237. CXR negative for acute process, there is left IJ catheter ad calcified granuloma. EKG borderline prolonged AL, sinus or ectopic atrial rhythm, atrial premature complex. Per ED attending first stool for OB was positive but has brown colored stool, no visual cas bleeding noted. He was admitted for PRBC transfusion and monitoring of Hgb. Case discussed at length with his PCP Dr. Chand, plan of care collaborated, will transfuse with 1U PRBC, recheck Hgb, if stable plan for discharge,HD tomorrow as scheduled with routine labs at that time, follow up with GI on Tuesday (he is established with Dr Rich) who is not in clinic today. 04/13/19- Resting in bed comfortably, PRBC currently infusion with no adverse reaction. He reports feelings of difficulty getting a full breath in or having periods of shortness of breath have resolved. NO development of chest pain. Plan for potential discharge after blood transfusion has been discussed with patient and who are in full agreement. PCP: Dr Chand Nephrology: Dr Payan Neurology: [facility] Neurology Hematology- [facility] Hematology Travel Screening - Travel/Exposure Within Last 30 Days Have you traveled within the last 30 days?: No - Travel/Exposure Within Last Year Have you traveled outside the [place] in the last year?: No - Additonal Travel Details Have you been exposed to anyone with a communicable illness?: No - Travel Symptoms Symptom Screening: None Review of Systems Constitutional: Denies: Chills, Fever, Malaise, Weakness Eyes: Denies: Eye discharge, Eye pain, Vision change ENT: Denies: Congestion, Throat pain Respiratory: Reports: Dyspnea. Denies: As per HPI, Cough, Hemoptysis, Stridor, Wheezes Cardiovascular: Denies: Arrhythmia, Chest pain, Edema, Palpitations, Syncope Endocrine: Denies: Fatigue, Polydipsia, Polyuria Gastrointestinal: Denies: Abdominal pain, Diarrhea, Nausea, Vomiting Genitourinary: Denies: Dysuria, Frequency, Hematuria Musculoskeletal: Denies: Arthralgia, Back pain, Myalgia Skin: Denies: Bruising, Change in color, Rash Neurological: Denies: Headache, Weakness Psychiatric: Denies: Anxiety Hematological/Lymphatic: Denies: Easy bleeding, Easy bruising, Swollen glands Past Medical History - SOCIAL HISTORY Smoking Status: Never smoker - RESPIRATORY Hx Respiratory Disorders: Yes Hx Sleep Apnea: No - CARDIOVASCULAR Hx Cardio Disorders: Yes Hx CHF: Yes Hx Edema: Yes Hx Hypertension: Yes - NEURO Hx Neuro Disorders: No Hx Seizures: Yes - GI Hx GI Disorders: Yes Hx Hepatitis/Jaundice: Yes (hepatitis C) - Hx Genitourinary Disorders: Yes Hx Renal Disease: Yes Hx UTI: Yes (recently) Comment:: On Dialysis 3 times a week - ENDOCRINE Hx Endocrine Disorders: Yes Hx Diabetes: Yes - MUSCULOSKELETAL Hx Musculoskeletal Disorders: Yes Hx Arthritis: Yes (hands) Hx Gout: Yes - PSYCH Hx Psych Problems: No - HEMATOLOGY/ONCOLOGY Hx Hematology/Oncology Disorders: No Hx Blood Transfusions: No Family Medical History Hx Diabetes: Mother, Brother/Sister Hx HTN: Father, Brother/Sister Hx Stroke: Mother, Brother/Sister H&P Meds/Allergies - Allergies Allergies: Allergies Allergy/AdvReac Type Severity Reaction Status Date / Time codeine [CODEINE] Allergy Intermediate RASH Verified 02/15/19 23:36 propoxyphene [PROPOXYPHENE] Allergy Intermediate RASH Verified 02/15/19 23:36 - Active Medications Active Medications: Current Medications Amlodipine Besylate (Norvasc) mg PO DAILY PRN PRN Reason: HYPERTENSIVE EMERGENCY Carvedilol (Coreg) 12.5 mg PO BID [facility] Last Admin: 04/13/19 10:11 Dose: 12.5 mg Documented by: Gabapentin (Neurontin) 100 mg PO TID [facility] Last Admin: 04/13/19 10:11 Dose: 100 mg Documented by: Insulin Human NPH (Humulin N Kwikpen) 40 unit SQ BIDAC [facility] Last Admin: 04/13/19 07:53 Dose: 40 unit Documented by: Levetiracetam (Keppra) 500 mg PO BID [facility] Last Admin: 04/13/19 10:11 Dose: 500 mg Documented by: Non-Formulary Medication (Insulin Aspart [Novolog]) 1 unit SQ ASDIR [facility] Non-Formulary Medication (Sevelamer Carbonate [Renvela]) 800 mg PO BID [facility] Pantoprazole Sodium (Protonix Iv) 40 mg IV DAILYAC [facility] Last Admin: 04/13/19 07:51 Dose: 40 mg Documented by: Physical Exam - Vital Signs Vital Signs: Vital Signs - Last 24 Hrs Temp Pulse Pulse Resp BP BP Pulse Ox 04/13/19 10:05 97.7 F 172/66 04/13/19 08:22 97.7 F 61 170/64 100 04/13/19 06:00 98.0 F 63 18 143/63 97 04/13/19 02:16 97.8 F 64 18 152/63 98 04/13/19 02:04 22 159/73 97 04/13/19 01:01 68 22 159/71 97 04/13/19 00:38 69 12 98 04/13/19 00:30 98.3 F 04/13/19 00:14 71 22 154/74 99 - General General Appearance: Alert, Oriented x3, Cooperative, No acute distress, Other (Appears relaxed and comfortable. No conversational dyspnea. ) Limitations: No limitations - Head Head exam: Atraumatic, Normal inspection - Eye Eye exam: Normal appearance, PERRL. negative: Conjunctival injection, Scleral icterus - ENT ENT exam: Normal exam, Mucous membranes moist Ear exam: Normal external inspection Nasal Exam: Normal inspection Mouth exam: Normal external inspection - Neck Neck exam: Normal inspection - Respiratory Respiratory exam: Normal lung sounds bilaterally. negative: Accessory muscle use, Decreased breath sounds, Prolonged expiratory, Respiratory distress, Rhonchi, Stridor, Wheezes - Cardiovascular Cardiovascular Exam: Regular rate, Normal rhythm, Normal heart sounds. negative: Tachycardia Peripheral Pulses: 2+: Radial (R), Radial (L) - GI/Abdominal GI/Abdominal exam: Soft. 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 negative: Calf tenderness, Tenderness - Back Back exam: Denies: CVA tenderness (R), CVA tenderness (L) - Neurological Neurological exam: Alert, Oriented X3 - Psychiatric Psychiatric exam: Normal affect, Normal mood - Skin Skin exam: Dry, Intact, Normal color, Warm Results - Labs Result Diagrams: 04/13/19 07:45 04/13/19 00:20 Labs Last 24 Hours: Laboratory Results - last 24 hr 04/13/19 04/13/19 04/13/19 00:20 00:20 07:30 WBC 2.5 L RBC 2.71 L Hgb 7.7 L Hct 25.3 L MCV 93.4 MCH 28.4 MCHC 30.4 L RDW 15.8 H Plt Count 80 L MPV 10.1 Neutrophils % 64.0 Eosinophils % Not Reportable Basophils % Not Reportable Absolute Neutrophils 1.69 Lymphocytes 23.0 Monocytes 9.0 Platelet Estimate Decreased Hypochromasia 1+ Anisocytosis 1+ Eosinophil Count 4.0 PT INR APTT Sodium 138 Potassium 3.8 Chloride 101 Carbon Dioxide 28.0 Anion Gap 9.0 BUN 25 H Creatinine 4.5 H Estimated GFR 14 POC Glucose Cancelled Random Glucose 237 H Calcium 9.5 Total Bilirubin 0.60 AST 31 ALT 7 Alkaline Phosphatase 97 Total Protein 7.3 Albumin 3.3 L Globulin 4.0 Albumin/Globulin Ratio 0.8 L ABO Group Rh Factor Antibody Screen Crossmatch 04/13/19 04/13/19 04/13/19 07:45 07:45 07:45 WBC 2.3 L RBC 2.62 L Hgb 7.4 L Hct 24.7 L MCV 94.3 MCH 28.2 MCHC 30.0 L RDW 15.7 H Plt Count 75 L MPV 10.1 Neutrophils % 68.0 Eosinophils % Not Reportable Basophils % Not Reportable Absolute Neutrophils 1.30 Lymphocytes 24.0 Monocytes 7.0 Platelet Estimate Decreased Hypochromasia 1+ Anisocytosis 1+ Eosinophil Count 1.0 PT 12.9 H INR 1.3 APTT 30.6 Sodium Potassium Chloride Carbon Dioxide Anion Gap BUN Creatinine Estimated GFR POC Glucose Random Glucose Calcium Total Bilirubin AST ALT Alkaline Phosphatase Total Protein Albumin Globulin Albumin/Globulin Ratio ABO Group Cancelled Rh Factor Cancelled Antibody Screen Cancelled Crossmatch 04/13/19 07:55 WBC RBC Hgb Hct MCV MCH MCHC RDW Plt Count MPV Neutrophils % Eosinophils % Basophils % Absolute Neutrophils Lymphocytes Monocytes Platelet Estimate Hypochromasia Anisocytosis Eosinophil Count PT INR APTT Sodium Potassium Chloride Carbon Dioxide Anion Gap BUN Creatinine Estimated GFR POC Glucose Random Glucose Calcium Total Bilirubin AST ALT Alkaline Phosphatase Total Protein Albumin Globulin Albumin/Globulin Ratio ABO Group A Rh Factor Positive Antibody Screen Negative Crossmatch Yes - Imaging and Cardiology Chest x-ray Status: Report reviewed (no acute process) VTE H&P Assessment - Risk for VTE Risk for VTE: Yes Risk Level: Moderate Risk Assessment Date: 04/13/19 Risk Assessment Time: 11:28 VTE Orders Placed or Will Be Placed: Yes Plan - Detailed Diagnosis and Plan (1) Acute on chronic anemia Current Visit: Yes Status: Acute Base Code: D64.9 - ANEMIA, UNSPECIFIED Comment: 04/13/19 - Baseline Hgb 10 ESRD on HD - Hgb 7.7 in ED, repeat this am 7.4 - T&C for 1U PRBC, repeat CBC 1 hour after - Stool for OB #1 positive although stool in ED was brown, no cas blood or black tarry stool. GI loss most likey a small bleed, will need scope after discharge - Plan for discharge after PRBC, repeat usual labs at HD tomorrow, appt already scheduled with GI for Tuesday04/16/19 (2) GI bleed Current Visit: Yes Status: Acute Qualifiers: GI bleed type/associated pathology: unspecified gastrointestinal hemorrhage type Qualified Code(s): K92.2 - Gastrointestinal hemorrhage, unspecified Base Code: K92.2 - GASTROINTESTINAL HEMORRHAGE, UNSPECIFIED Comment: 04/13/19 - See above - Anticoagulation contraindicated at this time (3) Dyspnea Current Visit: Yes Status: Acute Qualifiers: Dyspnea type: unspecified Qualified Code(s): R06.00 - Dyspnea, unspecified Base Code: R06.00 - DYSPNEA, UNSPECIFIED Comment: 04/13/19 - Resolved, unlikely cardiac related due to recent cardiac work up including heart cath (4) HTN (hypertension) Current Visit: Yes Status: Acute Qualifiers: Hypertension type: essential hypertension Qualified Code(s): I10 - Essential (primary) hypertension Base Code: I10 - ESSENTIAL (PRIMARY) HYPERTENSION Comment: 04/13/19 - Continue home meds (5) Seizure disorder Current Visit: Yes Status: Acute Base Code: G40.909 - EPILEPSY, UNSP, NOT INTRACTABLE, WITHOUT STATUS EPILEPTICUS Comment: 04/13/19 - Continue home meds (6) Diabetes Current Visit: Yes Status: Acute Qualifiers: Diabetes mellitus type: type 2 Diabetes mellitus complication status: with kidney complications Diabetes mellitus complication detail: with chronic kidney disease Chronic kidney disease stage: on chronic dialysis Base Code: E11.9 - TYPE 2 DIABETES MELLITUS WITHOUT COMPLICATIONS Comment: 04/13/19 - HD , , - NPH 40 units BID, Accu checks as scheduled with sliding scale insulin (7) Chronic renal failure Current Visit: Yes Status: Acute Qualifiers: Chronic kidney disease stage: unspecified stage Qualified Code(s): N18.9 - Chronic kidney disease, unspecified Base Code: N18.9 - CHRONIC KIDNEY DISEASE, UNSPECIFIED (8) Full code status Current Visit: Yes Status: Acute Base Code: Z78.9 - OTHER SPECIFIED HEALTH STATUS (9) DVT prophylaxis Current Visit: Yes Status: Acute Base Code: Z29.9 - ENCOUNTER FOR PROPHYLAC TIC MEASURES, UNSPECIFIED Comment: 04/13/19 - Right BKA - Nursing to encourage ambulation with prosthesis - Anticoagulation contraindicated
[2019-04-13 12:17] LABS: ABSOLUTE NEUTROPHIL COUNT 1.62; HEMATOCRIT 25.3 % (42.0-52.0); HEMOGLOBIN 8.5 gm/dl (14.0-18.0); MEAN CELL VOLUME 92.7 fl (81-97); MEAN CORPUSCULAR HEMOGLOBIN 31.1 pg (27-33); MEAN CORPUSCULAR HGB CONC 33.6 g/dl (32-36); MEAN PLATELET VOLUME 9.8 fl (7.4-10.4); PLATELET COUNT 73 K/uL (130-400); RED BLOOD COUNT 2.73 M/uL (4.40-5.70); RED CELL DISTRIBUTION WIDTH 16.2 % (11.5-14.5); WHITE BLOOD COUNT W/O DIFF 2.7 K/uL (4.2-12.2)
[2019-04-13 12:48] LABS: HYPOCHROMIA 1+; PLATELET ESTIMATE DECREASED (NORMAL)
[2019-04-13 12:49] LABS: ANISOCYTOSIS 1+
--- NOTE | 2019-04-13 13:33 | Discharge Summary ---
Providers Discharge Summary Date: 04/13/19 Date of admission: 04/13/19 01:45 Attending physician: EITAN HALL Primary care physician: Everardo Chand Consults: Consult Orders 04/13/19 02:16 Consult NOW Consulting Provider: JUANITO MCMAHON Physician Instructions: Reason For Exam: anemia, heme positive stool Physical Exam - Vital Signs Vital Signs: Vital Signs - Last 24 Hrs Temp Pulse Pulse Resp BP BP Pulse Ox 04/13/19 10:05 97.7 F 172/66 04/13/19 08:22 97.7 F 61 170/64 100 04/13/19 06:00 98.0 F 63 18 143/63 97 04/13/19 02:16 97.8 F 64 18 152/63 98 04/13/19 02:04 22 159/73 97 04/13/19 01:01 68 22 159/71 97 04/13/19 00:38 69 12 98 04/13/19 00:30 98.3 F 04/13/19 00:14 71 22 154/74 99 - General General Appearance: Alert, Oriented x3, Cooperative, No acute distress, Other (Appears relaxed and comfortable. No conversational dyspnea. ) Limitations: No limitations - Head Head exam: Atraumatic, Normal inspection - Eye Eye exam: Normal appearance, PERRL. negative: Conjunctival injection, Scleral icterus - ENT ENT exam: Normal exam, Mucous membranes moist Ear exam: Normal external inspection Nasal Exam: Normal inspection Mouth exam: Normal external inspection - Neck Neck exam: Normal inspection - Respiratory Respiratory exam: Normal lung sounds bilaterally. negative: Accessory muscle use, Decreased breath sounds, Prolonged expiratory, Respiratory distress, Rhonchi, Stridor, Wheezes - Cardiovascular Cardiovascular Exam: Regular rate, Normal rhythm, Normal heart sounds, Other (right arm fistula with palpable bruit). negative: Tachycardia Peripheral Pulses: 2+: Radial (R), Radial (L) - GI/Abdominal GI/Abdominal exam: Soft. 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 negative: Calf tenderness, Tenderness - Back Back exam: Denies: CVA tenderness (R), CVA tenderness (L) - Neurological Neurological exam: Alert, Oriented X3 - Psychiatric Psychiatric exam: Normal affect, Normal mood - Skin Skin exam: Dry, Intact, Normal color, Warm Hospitalization - Hospitalization Admission Diagnosis: anemia with heme positive stools - Problem List/Discharge Diagnosis (1) Acute on chronic anemia Current Visit: Yes Status: Acute Base Code: D64.9 - ANEMIA, UNSPECIFIED Comment: 04/13/19 - Baseline Hgb 10 ESRD on HD - Hgb 7.7 in ED, repeat this am 7.4 - T&C for 1U PRBC, repeat CBC 1 hour after, Hgb 8.5 after transfusion - Stool for OB #1 positive although stool in ED was brown, no cas blood or black tarry stool. GI loss most likey a small bleed, will need scope after discharge - Plan for discharge after PRBC, repeat usual labs at HD tomorrow, appt already scheduled with GI for Tuesday04/16/19 (2) GI bleed Current Visit: Yes Status: Acute Discharge Diagnosis: GI bleed type/associated pathology: unspecified gastrointestinal hemorrhage type Qualified Code(s): K92.2 - Gastrointestinal hemorrhage, unspecified Base Code: K92.2 - GASTROINTESTINAL HEMORRHAGE, UNSPECIFIED Comment: 04/13/19 - See above - Additional Anticoagulation contraindicated at this time, is on Plavix, recent revsion of right arm fistula - Appreciate nephrology and gastroenterology input regarding continued plavix if there is confimed GI bleeding (3) Dyspnea Current Visit: Yes Status: Acute Discharge Diagnosis: Dyspnea type: unspecified Qualified Code(s): R06.00 - Dyspnea, unspecified Base Code: R06.00 - DYSPNEA, UNSPECIFIED Comment: 04/13/19 - Resolved, unlikely cardiac related due to recent cardiac work up including heart cath (4) HTN (hypertension) Current Visit: Yes Status: Acute Discharge Diagnosis: Hypertension type: essential hypertension Qualified Code(s): I10 - Essential (primary) hypertension Base Code: I10 - ESSENTIAL (PRIMARY) HYPERTENSION Comment: 04/13/19 - Continue home meds (5) Seizure disorder Current Visit: Yes Status: Acute Base Code: G40.909 - EPILEPSY, UNSP, NOT INTRACTABLE, WITHOUT STATUS EPILEPTICUS Comment: 04/13/19 - Continue home meds (6) Diabetes Current Visit: Yes Status: Acute Discharge Diagnosis: Diabetes mellitus type: type 2 Diabetes mellitus complication status: with kidney complications Diabetes mellitus complication detail: with chronic kidney disease Chronic kidney disease stage: on chronic dialysis Base Code: E11.9 - TYPE 2 DIABETES MELLITUS WITHOUT COMPLICATIONS Comment: 04/13/19 - HD , - NPH 40 units BID, Accu checks as scheduled with sliding scale insulin (7) Chronic renal failure Current Visit: Yes Status: Acute Discharge Diagnosis: Chronic kidney disease stage: unspecified stage Qualified Code(s): N18.9 - Chronic kidney disease, unspecified Base Code: N18.9 - CHRONIC KIDNEY DISEASE, UNSPECIFIED (8) Full code status Current Visit: Yes Status: Acute Base Code: Z78.9 - OTHER SPECIFIED HEALTH STATUS (9) DVT prophylaxis Current Visit: Yes Status: Acute Base Code: Z29.9 - ENCOUNTER FOR PROPHYLACTIC MEASURES, UNSPECIFIED Comment: 04/13/19 - Right BKA - Nursing to encourage ambulation with prosthesis - additional anticoagulation contraindicated - Hospitalization Course Disposition: Home, Self-Care Hospital Course: 68 y/o chronically ill male presented to ED for feeling the need to take deep breaths alternating with shortness of breath for about 2-3 hours prior to arrival. He is currently on HD, last run was day of ED arrival, no reported difficulties or issues during that run. He is well known to Dr Chand. He denies any chest pain, cough. Had similar symptoms in January 2019, was sent to [facility], had cardiac work up, including heart cath, with no acute cardiac etiology of symptoms noted. He reports no current changes in his health or chronic conditions. No nausea, vomiting, diarrhea. Past medical history includes CHF, HTN, seizure disorder, hepatitis C, ESRD on HD, DM-2,, OA, gout. While in ED VSS stable with slight elevation in BP (154/74), WBC 2.5, Hgb 7.7 (patient reports baseline Hgb 10), PT 12.9, otherwise coag panel normal. NUN 25, Cr 4.5. Random glucose 237. CXR negative for acute process, there is left IJ catheter ad calcified granuloma. EKG borderline prolonged DE, sinus or ectopic atrial rhythm, atrial premature complex. Per ED attending first stool for OB was positive but has brown colored stool, no visual cas bleeding noted. He was admitted for PRBC transfusion and monitoring of Hgb. Case discussed at length with his PCP Dr. Chand, plan of care collaborated, will transfuse with 1U PRBC, recheck Hgb, if stable plan for discharge,HD tomorrow as scheduled with routine labs at that time, follow up with GI on Tuesday (he is established with Dr Rich) who is not in clinic today. 04/13/19- Resting in bed comfortably, PRBC currently infusion with no adverse reaction. He reports feelings of difficulty getting a full breath in or having periods of shortness of breath have resolved. NO development of chest pain. Plan for potential discharge after blood transfusion has been discussed with patient and who are in full agreement. 04/13/19 1330- Hospital course unremarkable. Tolerated transfusion of PRBC without incident. Hgb increased to 8.5. NO further ALLEN. Possible slow GI bleed with no cas blood in stool but + heme test. Responded well to transfusion. Clinically improved. Plan to discharge home, HD tomorrow as scheduled with routine labs. Appointment with GI already scheduled for 04/16/19 On plavix with recent right arm fistula revision. Appreciate nephrology and GI input regarding continuing Plavix in light of possible GI bleeding. PCP: Dr Chand Nephrology: Dr Payan Neurology: [facility] Neurology Hematology- [facility] Procedures: Imaging and X-Rays 04/13/19 00:16 CHEST 2 VIEWS [RAD] Stat Cardiology Procedures 04/13/19 00:16 Sales Development Specialist NOW EKG NOW Abnormal Labs: Abnormal Lab Results 04/13/19 04/13/19 04/13/19 Range/Units 00:20 00:20 07:45 WBC 2.5 L 2.3 L (4.2-12.2) K/uL RBC 2.71 L 2.62 L (4.40-5.70) M/uL Hgb 7.7 L 7.4 L (14.0-18.0) gm/dl Hct 25.3 L 24.7 L (42.0-52.0) % MCHC 30.4 L 30.0 L (32-36) g/dl RDW 15.8 H 15.7 H (11.5-14.5) % Plt Count 80 L 75 L (130-400) K/uL PT (9.5-12.1) SECONDS BUN 25 H (8-23) mg/dL Creatinine 4.5 H (0.7-1.2) mg/dL Random Glucose 237 H (74-109) mg/dL Albumin 3.3 L (4.0-5.0) g/dL Albumin/Globulin Ratio 0.8 L (1.1-1.8) 04/13/19 04/13/19 Range/Units 07:45 12:07 WBC 2.7 L (4.2-12.2) K/uL RBC 2.73 L (4.40-5.70) M/uL Hgb 8.5 L (14.0-18.0) gm/dl Hct 25.3 L (42.0-52.0) % MCHC (32-36) g/dl RDW 16.2 H (11.5-14.5) % Plt Count 73 L (130-400) K/uL PT 12.9 H (9.5-12.1) SECONDS BUN (8-23) mg/dL Creatinine (0.7-1.2) mg/dL Random Glucose (74-109) mg/dL Albumin (4.0-5.0) g/dL Albumin/Globulin Ratio (1.1-1.8) Condition at Discharge: (2) Stable Discharge Medications - Discharge Medications Home Medications: Ambulatory Orders Sevelamer Carbonate [Renvela] 800 mg PO BID 07/19/15 [Last Taken 10/30/16] Insulin Aspart [Novolog] 1 unit SQ ASDIR 11/12/15 [Last Taken 10/30/16] Insulin NPH Human Isophane [Humulin N] 40 unit SQ BID 11/12/15 [Last Taken 06/16/17 13:00] Atorvastatin Calcium [Lipitor] 10 mg PO QHS 03/06/16 [Last Taken 10/30/16] Carvedilol 12.5 mg PO BID 03/06/16 [Last Taken 10/30/16] Clopidogrel Bisulfate [Plavix] 75 mg PO DAILY 03/06/16 [Last Taken 10/29/16] Gabapentin [Neurontin] 100 mg PO TID 02/23/17 [Last Taken Unknown] Lactulose 10 gm PO ASDIR 02/23/17 [Last Taken Unknown] Levetiracetam [Keppra] 500 mg PO BID 02/23/17 [Last Taken Unknown] Cyanocobalamin (Vitamin B-12) [Cyanocobalamin Injection] 1 ml IM MONTHLY 12/29/17 [Last Taken Unknown] Doxycycline Hyclate 1 tab PO DAILY 12/29/17 [Last Taken Unknown] Amlodipine Besylate [Norvasc] 1 tab PO DAILY PRN MDD 5 MG 02/15/19 [Last Taken Unknown] Discharge Plan - Discharge Instructions Activity at Discharge: Resume Usual Activities As Tolerated Diet at Discharge: Advance to Usual Diet Additional Instructions: Appointment at [facility] with ROSALVA Gonsalez on April 16 at 11:00am. Office phone: . Address: [address] Reginald Connell. Quality Measures - Quality Measures Quality Measures: Advance Directives, Documentation of Current Medications in Medical Record, Elder Maltreatment Screen and Follow-Up Plan, Screening for High Blood Pressure and F/U Documented - Current Medications Quality Measure: Measure #130: Documentation of Current Medications Documentation of Current Medications: <Current Medications Documented/Reviewed> [G8427] - Blood Pressure Screening Quality Measure: Screening for High Blood Pressure and Follow-Up Documented Does Patient Have Any of the Following: Active Dx of HTN Blood Pressure Classification: Hypertensive Reading Systolic Measurement: 172 Diastolic Measurement: 66 Screening for High Blood Pressure: Patient Exclusion, Hx of HTN [G9744] - Advance Directives Quality Measure: Measure #47: Care Plan Advance Directives Established: Yes Advance Directives Information Provided To Patient: Yes Advance Directives on File: No Living Will: No Power of Licensed Plumber: Yes Power of Licensed Plumber Name: VIPUL BRAXTON Advance Care Planning: <Care Plan/Decision Maker Documented; Discussed & Documented> [0083F] - Elder Abuse Suspicion Index Screening: Elder Abuse Suspicion Index Screening Rely on people for bathing, dressing, shopping, banking, etc: No Prevented from getting food, clothes, medication, etc: No Made to feel shamed or threatened by someone: No Forced to sign papers or use money against will: No Feel afraid, touched in ways not wanted or hurt physically: No Poor eye contact, withdrawn, malnourished, cuts or bruises: No Screening Result: Negative result EASI Reference Information: Hernandez GAVIRIA, Ree C, Nadege Navarro, Easton Perez.Development and validation of a tool to assist physicians identification of elder abuse: The Elder Abuse Suspicion Index (EASI ). Journal of Elder Abuse and Neglect, 2008; 20 (3): 276-300. - Elder Maltreatment Screen Quality Measures: Elder Maltreatment Screen and Follow-Up Plan Elder Maltreatment Screen: <Negative, No Follow-Up Plan Required> [G4386]
== END 2019-04-13 14:20 | disposition home or self-care (01) ==
LOC: ER 00:12 → MEDSURG 01:45
PROVIDERS: ADMIT Internal Medicine; ATTEND Internal Medicine
DX: N18.9 Chronic kidney disease, unspecified (principal); D64.89 Other specified anemias; R19.5 Other fecal abnormalities; N18.6 End stage renal disease; Z99.2 Dependence on renal dialysis; K92.2 Gastrointestinal hemorrhage, unspecified; I50.9 Heart failure, unspecified; I10 Essential (primary) hypertension; B19.20 Unspecified viral hepatitis C without hepatic coma; E11.9 Type 2 diabetes mellitus without complications; Z79.4 Long term (current) use of insulin; M10.9 Gout, unspecified; G40.909 Epilepsy, unspecified, not intractable, without status epilepticus; Z98.61 Coronary angioplasty status; M19.90 Unspecified osteoarthritis, unspecified site; Z89.611 Acquired absence of right leg above knee
CPT/HCPCS: 36430; 71046; 80053; 85027; 85610; 85730; 86850; 86900; 86901; 93005; 93010; 94640; 99220; 99285; C9113; J7613

== ENCOUNTER 2019-04-24 22:46 | Emergency (ER) | payer MEDICARE, BC ==
--- NOTE | 2019-04-24 23:10 | Emergency Department Record ---
History of Present Illness - General Chief Complaint: Shortness of breath Stated Complaint: ALLEN Time Seen by Provider: 04/24/19 22:57 Source: Patient, Family Mode of Arrival: Ambulatory Limitations: No limitations - History of Present Illness Initial Comments: 68 yo male presents with a feeling of shortness of breath. He states the symptoms developed over the course of the evening. No chest pain. He is a dialysis patient. He had dialysis today. He had a full run without complications. His post dialysis weight was normal for him at 184. No cough. No fever. He was evaluated in January with similar symptoms. He was sent to [facility] at that time and had a full work up. He is a patient of [facility]. He was seen on April 13 with the same symptoms with low Hgb of 7.9. He was transfused to 8.5 and felt better. He was DC home for further outpatient follow up. His symptoms seem to occur on days after dialysis per his . No other changes in his health. PCP is Dr Chand in [place]. Complaint: Shortness of breath -: Hour(s) Severity: Moderate Quality: Other Consistency: Constant Improves With: Nothing Worsens With: Exertion Known History Of: Other (ESRD) Context: Other Associated Symptoms: Edema (chronic in left leg) Treatments Prior to Arrival: None - Related Data Allergies Allergy/AdvReac Type Severity Reaction Status Date / Time tramadol Allergy Severe PT UNSURE Verified 04/24/19 23:05 OF REACTION codeine [CODEINE] Allergy Intermediate RASH Verified 04/24/19 23:05 propoxyphene [PROPOXYPHENE] Allergy Intermediate RASH Verified 04/24/19 23:05 Review of Systems Constitutional: Reports: Weakness. Denies: Chills, Fever, Malaise Eyes: Denies: Eye discharge ENT: Denies: Congestion, Throat pain Respiratory: Denies: Cough, Dyspnea Cardiovascular: Reports: Edema. Denies: Chest pain, Palpitations, Syncope Endocrine: Reports: Fatigue. Denies: Polydipsia, Polyuria Gastrointestinal: Denies: Abdominal pain, Diarrhea, Nausea, Vomiting Genitourinary: Denies: Dysuria, Frequency, Hematuria Musculoskeletal: Denies: Back pain, Joint swelling, Myalgia Skin: Denies: Bruising, Change in color, Rash Neurological: Denies: Headache Psychiatric: Denies: Anxiety Hematological/Lymphatic: Denies: Easy bleeding, Easy bruising Past Medical History - SOCIAL HISTORY Smoking Status: Never smoker - RESPIRATORY Hx Respiratory Disorders: Yes Hx Sleep Apnea: No - CARDIOVASCULAR Hx Cardio Disorders: Yes Hx CHF: Yes Hx Edema: Yes Hx Hypertension: Yes - NEURO Hx Neuro Disorders: No Hx Seizures: Yes - GI Hx GI Disorders: Yes Hx Hepatitis/Jaundice: Yes (hepatitis C) - Hx Genitourinary Disorders: Yes Hx Renal Disease: Yes Hx UTI: Yes (recently) Comment:: On Dialysis 3 times a week - ENDOCRINE Hx Endocrine Disorders: Yes Hx Diabetes: Yes - MUSCULOSKELETAL Hx Musculoskeletal Disorders: Yes Hx Arthritis: Yes (hands) Hx Gout: Yes - PSYCH Hx Psych Problems: No - HEMATOLOGY/ONCOLOGY Hx Hematology/Oncology Disorders: No Hx Blood Transfusions: No Family Medical History Hx Diabetes: Mother, Brother/Sister Hx HTN: Father, Brother/Sister Hx Stroke: Mother, Brother/Sister Physical Exam - General General Appearance: Alert, Oriented x3, Cooperative, No acute distress Limitations: No limitations - Head Head exam: Atraumatic, Normal inspection - Eye Eye exam: Normal appearance, PERRL. negative: Conjunctival injection, Scleral icterus - ENT ENT exam: Normal exam, Mucous membranes moist Ear exam: Normal external inspection Nasal Exam: Normal inspection Mouth exam: Normal external inspection - Neck Neck exam: Normal inspection - Respiratory Respiratory exam: Decreased breath sounds, Prolonged expiratory, Rales (few scattered, mild). negative: Normal lung sounds bilaterally, Accessory muscle use, Chest wall tenderness, Respiratory distress, Rhonchi, Stridor - Cardiovascular Cardiovascular Exam: Regular rate, Normal rhythm, Normal heart sounds Peripheral Pulses: 2+: Radial (R), Radial (L) - GI/Abdominal GI/Abdominal exam: Soft. negative: Tenderness - Rectal Rectal exam: Deferred - exam: Deferred - Extremities Extremities exam: Pedal edema (LLE, Right BKA). negative: Normal inspection - Back Back exam: Denies: CVA tenderness (R), CVA tenderness (L) - Neurological Neurological exam: Alert, Oriented X3 - Psychiatric Psychiatric exam: Normal affect, Normal mood - Skin Skin exam: Dry, Intact, Normal color, Warm Course Vital Signs 04/24/19 22:54 Temperature 97.5 F L Pulse Rate [ 72 Pulse Ox Probe] Respiratory 24 Rate Blood Pressure 128/67 [Left Arm] Pulse Ox 99 - Reevaluation(s) Reevaluation #1: 04/24/19 23:09 EKG #1: 22:53 Rate: 73 Rhythm: sinus [place]: left Intervals: normal ST segments: non specific lateral flat T waves and mild depression in leads I and AVL Prior 04/13/19 04/25/19 00:02 The Troponin is elevated at 0.753 above his baseline of 0.1 The Pro BNP is 28,615 CR is 5.0 04/25/19 00:02 04/25/19 00:03 Aspirin ordered. CXR Mild prominence of pulmonary vascular 04/25/19 00:47 [facility] was contacted I ANTON Albarado of [facility] to discuss the changes in the elevation of the troponin and lateral EKG changes He agrees with transfer for further evaluation Dr Baldwin of the hospitalist service was contacted and agreed to accept the admission Medical Decision Making - Lab Data Result diagrams: 04/24/19 22:55 04/24/19 22:55 Disposition Disposition: Transfer Clinical Impression: Elevated troponin, Dyspnea, Renal insufficiency Disposition: Acute Care Hospital Transfer Transfer To: [facility] Reason For Transfer: elevated troponin Accepting Physician: Nicolasa Time Discussed w/Accepting Physician: 00:49 Condition: (2) Stable Forms: Patient Portal Access Time of Disposition: 00:49 Quality - Quality Measures Quality Measures: N/A - Blood Pressure Screening Does Patient Have Any of the Following: Active Dx of HTN Blood Pressure Classification: Hypertensive Reading Systolic Measurement: 143 Diastolic Measurement: 69 Screening for High Blood Pressure: Patient Exclusion, Hx of HTN [G9744]
[2019-04-24] MEDS ORDERED: IPRATROPIUM/ALBUTEROL (0.5MG/3MG) NEB INH ONE (23:11)
[2019-04-24 23:15] LABS: ABSOLUTE NEUTROPHIL COUNT 2.78; BASO % 0.5 % (0-6); EOS % 2.1 % (0-6); GRAN % 72.3 % (47-80); HEMATOCRIT 28.8 % (42.0-52.0); LYMPH % 13.2 % (16-45); MEAN CELL VOLUME 94.7 fl (81-97); MEAN CORPUSCULAR HEMOGLOBIN 29.6 pg (27-33); MEAN CORPUSCULAR HGB CONC 31.3 g/dl (32-36); MEAN PLATELET VOLUME 10.5 fl (7.4-10.4); MONO % 11.9 % (0-9); PLATELET COUNT 67 K/uL (130-400); RED BLOOD COUNT 3.04 M/uL (4.40-5.70); RED CELL DISTRIBUTION WIDTH 18.2 % (11.5-14.5); WHITE BLOOD COUNT W/O DIFF 3.9 K/uL (4.2-12.2)
[2019-04-24 23:21] LABS: BILIRUBIN,TOTAL 0.9 mg/dL (0.2-1.0)
[2019-04-24 23:22] LABS: TOTAL PROTEIN 7.5 g/dL (6.6-8.7)
[2019-04-24 23:27] LABS: ALB/GLOB RATIO 0.7 (1.1-1.8); ALBUMIN 3.2 g/dL (4.0-5.0)
[2019-04-25] MEDS ORDERED: ASPIRIN 81 MG CHEWABLE TABLET PO ONE (00:03)
== END 2019-04-25 01:49 | disposition short-term general hospital (02) ==
LOC: ER 22:46
DX: R79.89 Other specified abnormal findings of blood chemistry (principal); R06.00 Dyspnea, unspecified; E11.22 Type 2 diabetes mellitus with diabetic chronic kidney disease; I13.2 Hypertensive heart and chronic kidney disease with heart failure and with stage 5 chronic kidney disease, or end stage renal disease; N18.6 End stage renal disease; I50.9 Heart failure, unspecified; Z99.2 Dependence on renal dialysis
CPT/HCPCS: 71045; 80053; 83880; 84484; 85025; 93005; 93010; 94640; 99285

== ENCOUNTER 2019-07-02 23:06 | Emergency (ER) | payer MEDICARE, BC ==
--- NOTE | 2019-07-02 23:22 | Emergency Department Record ---
History of Present Illness - General Chief complaint: Male Urogenital Problem Stated complaint: URINATING BLOOD Time Seen by Provider: 07/02/19 23:07 Source: Patient Mode of Arrival: Ambulatory Limitations: No limitations - History of Present Illness Initial comments: 69 yo male on dialysis presents to ED for evaluation of a small amount of blood in the urine earlier this evening (17:00). Patient reports similar symptoms with urinary tract infections. Patient denies fevers, chills, or flank pain symptoms, reports that he does not make much urine but has not urinated in 6 hours. Patient does report use of Plavix, denies genital injury or trauma, denies recent procedure. MD Complaint: Other Onset/Timin -: Hour(s) Radiation: None Severity: Mild Consistency: Intermittent Improves with: None Worsens with: None Reports: Denies other symptoms - Related Data Previous Rx's Medication Instructions Recorded Sulfamethoxazole/Trimethoprim 1 each PO BID #13 tablet 07/02/19 [Bactrim Ds Tablet] Allergies Allergy/AdvReac Type Severity Reaction Status Date / Time tramadol Allergy Severe PT UNSURE Verified 07/02/19 23:20 OF REACTION codeine [CODEINE] Allergy Intermediate RASH Verified 07/02/19 23:20 propoxyphene [PROPOXYPHENE] Allergy Intermediate RASH Verified 07/02/19 23:20 Review of Systems Constitutional: Denies: Chills, Fever, Malaise, Night sweats Eyes: Denies: Eye discharge, Eye pain ENT: Denies: Congestion, Ear pain, Epistaxis Respiratory: Denies: Cough, Dyspnea Cardiovascular: Denies: Chest pain, Dyspnea on exertion Endocrine: Denies: Fatigue, Heat or cold intolerance Gastrointestinal: Denies: Abdominal pain, Nausea, Vomiting Genitourinary: Reports: Hematuria. Denies: Incontinence, Retention Musculoskeletal: Denies: Arthralgia, Back pain, Gout, Joint swelling Skin: Denies: Bruising, Change in color Neurological: Denies: Abnormal gait, Confusion, Headache, Seizure Psychiatric: Denies: Anxiety Hematological/Lymphatic: Denies: Anemia, Blood Clots Past Medical History - SOCIAL HISTORY Smoking Status: Never smoker - RESPIRATORY Hx Respiratory Disorders: Yes Hx Sleep Apnea: No - CARDIOVASCULAR Hx Cardio Disorders: Yes Hx CHF: Yes Hx Edema: Yes Hx Hypertension: Yes - NEURO Hx Neuro Disorders: No Hx Seizures: Yes - GI Hx GI Disorders: Yes Hx Hepatitis/Jaundice: Yes (hepatitis C) - Hx Genitourinary Disorders: Yes Hx Renal Disease: Yes Hx UTI: Yes (recently) Comment:: On Dialysis 3 times a week - ENDOCRINE Hx Endocrine Disorders: Yes Hx Diabetes: Yes - MUSCULOSKELETAL Hx Musculoskeletal Disorders: Yes Hx Arthritis: Yes (hands) Hx Gout: Yes - PSYCH Hx Psych Problems: No - HEMATOLOGY/ONCOLOGY Hx Hematology/Oncology Disorders: No Hx Blood Transfusions: No Family Medical History Hx Diabetes: Mother, Brother/Sister Hx HTN: Father, Brother/Sister Hx Stroke: Mother, Brother/Sister Physical Exam - General General Appearance: Alert, Oriented x3, Cooperative, No acute distress Limitations: No limitations - Head Head exam: Atraumatic, Normocephalic, Normal inspection Head exam detail: negative: Abrasion, Contusion, Smith's sign, General tenderness, Hematoma, Laceration - Eye Eye exam: Normal appearance. negative: Conjunctival injection, Periorbital swelling, Periorbital tenderness, Scleral icterus - ENT Ear exam: negative: Auricular hematoma, Auricular trauma Nasal Exam: negative: Active bleeding, Discharge, Dried blood, Foreign body Mouth exam: negative: Drooling, Laceration, Muffled voice, Tongue elevation - Neck Neck exam: Normal inspection. negative: Meningismus, Tenderness - Respiratory Respiratory exam: Normal lung sounds bilaterally. negative: Rales, Respiratory distress, Rhonchi, Stridor - Cardiovascular Cardiovascular Exam: Regular rate, Normal rhythm, Normal heart sounds, Systolic murmur - GI/Abdominal GI/Abdominal exam: Soft. negative: Rebound, Rigid, Tenderness - Rectal Rectal exam: Deferred - exam: Deferred - Extremities Extremities exam: negative: Pedal edema, Tenderness - Back Back exam: Denies: CVA tenderness (R), CVA tenderness (L) - Neurological Neurological exam: Alert, Normal gait, Oriented X3 - Psychiatric Psychiatric exam: Normal affect, Normal mood - Skin Skin exam: Normal color. negative: Abrasion Type of lesion: negative: abrasion Course Vital Signs 07/02/19 23:12 Temperature 98.6 F Pulse Rate [ 71 Pulse Ox Probe] Respiratory 20 Rate Blood Pressure 138/71 [Left Arm] Pulse Ox 95 - Reevaluation(s) Reevaluation #1: 07/02/19 23:59 Patient is declining laboratory studies as he reports that "I had a lot of blood work just drawn this afternoon". UA was reviewed: TNTC RBCs TNTC WBCs 0-2 Epithelial cells 3+ Bacteria Patient was updated on all results, findings appear c/w hematuria likely resulting form UTI. Patient has a follow-up appointment scheduled with Dr. Chand in Tuesday as directed. Patient was counseled to return to the ED or to seek Urology referral for hematuria lasting > 72 hours. Patient and his verbalize understanding of all instructions, VSS, patient appears stable for discharge. Disposition Disposition: Discharge Clinical Impression: UTI (urinary tract infection) Qualifiers: Urinary tract infection type: acute cystitis Hematuria presence: with hematuria Qualified Code(s): N30.01 - Acute cystitis with hematuria Disposition: Home, Self-Care Condition: (2) Stable Instructions: Urinary Tract Infection in Men (ED) Additional Instructions: Return to ED if your symptoms worsen or if you have any concerns. Bactrim as directed. Follow-up with your family doctor in 3-5 days as directed. Prescriptions: Sulfamethoxazole/Trimethoprim [Bactrim Ds Tablet] 1 each PO BID #13 tablet Forms: Patient Portal Access Time of Disposition: 23:58 Quality - Quality Measures Quality Measures: N/A - Blood Pressure Screening Does Patient Have Any of the Following: No Blood Pressure Classification: Pre-Hypertensive BP Reading Systolic Measurement: 138 Diastolic Measurement: 71 Screening for High Blood Pressure: < Pre-Hypertensive BP, F/U Documented > [G8950] Pre-Hypertensive Follow-up Interventions: Referral to alternative/primary care provider.
[2019-07-02 23:45] LABS: URINE BILIRUBIN MODERATE (NEGATIVE); URINE BLOOD LARGE (NEGATIVE); URINE GLUCOSE (UA) NEGATIVE (NEGATIVE); URINE KETONE TRACE (NEGATIVE); URINE LEUKOCYTE ESTERASE LARGE (NEGATIVE); URINE NITRITE POSITIVE (NEGATIVE)
[2019-07-02 23:47] LABS: URINE PROTEIN 300 mg/dL (NEGATIVE)
[2019-07-02 23:50] LABS: URINE BACTERIA 3+; URINE EPITHELIAL CELLS 0 - 2 (FEW)
[2019-07-02] MEDS ORDERED: TMP/SMZ 160MG/800MG TAB PO ONE (23:57)
[2019-07-02 23:59] LABS: URINE APPEARANCE TURBID; URINE COLOR BROWN
--- NOTE | 2019-07-03 18:14 | Emergency Department Record ---
History of Present Illness - General Chief complaint: Male Urogenital Problem Stated complaint: URINATING BLOOD Time Seen by Provider: 07/02/19 23:07 Source: Patient Mode of Arrival: Ambulatory Limitations: No limitations - History of Present Illness Initial comments: REVISION OF CARE NOTE: Keflex substituted for Bactrim due to renal excretion and decreased renal function. Patient's was contacted re: revision of care (18:15), Rx sent to pharmacy. Onset/Timin -: Hour(s) Location: Penis Radiation: None Severity: Mild Quality: Burning Consistency: Intermittent Improves with: None Worsens with: None Reports: Denies other symptoms - Related Data Previous Rx's Medication Instructions Recorded Cephalexin [Keflex] 500 mg PO TID #21 cap 07/03/19 Allergies Allergy/AdvReac Type Severity Reaction Status Date / Time tramadol Allergy Severe PT UNSURE Verified 07/02/19 23:20 OF REACTION codeine [CODEINE] Allergy Intermediate RASH Verified 07/02/19 23:20 propoxyphene [PROPOXYPHENE] Allergy Intermediate RASH Verified 07/02/19 23:20 Travel Screening - Travel/Exposure Within Last 30 Days Have you traveled within the last 30 days?: No - Travel/Exposure Within Last Year Have you traveled outside the [place] in the last year?: No - Additonal Travel Details Have you been exposed to anyone with a communicable illness?: No - Travel Symptoms Symptom Screening: None Review of Systems Constitutional: Denies: Chills, Fever, Malaise, Night sweats Eyes: Denies: Eye discharge, Eye pain ENT: Denies: Congestion, Ear pain, Epistaxis Respiratory: Denies: Cough, Dyspnea Cardiovascular: Denies: Chest pain, Dyspnea on exertion Endocrine: Denies: Fatigue, Heat or cold intolerance Gastrointestinal: Denies: Abdominal pain, Nausea, Vomiting Genitourinary: Reports: Hematuria. Denies: Incontinence, Retention Musculoskeletal: Denies: Arthralgia, Back pain, Gout, Joint swelling Skin: Denies: Bruising, Change in color Neurological: Denies: Abnormal gait, Confusion, Headache, Seizure Psychiatric: Denies: Anxiety Hematological/Lymphatic: Denies: Anemia, Blood Clots Past Medical History - SOCIAL HISTORY Smoking Status: Never smoker - RESPIRATORY Hx Respiratory Disorders: Yes Hx Sleep Apnea: No - CARDIOVASCULAR Hx Cardio Disorders: Yes Hx CHF: Yes Hx Edema: Yes Hx Hypertension: Yes - NEURO Hx Neuro Disorders: No Hx Seizures: Yes - GI Hx GI Disorders: Yes Hx Hepatitis/Jaundice: Yes (hepatitis C) - Hx Genitourinary Disorders: Yes Hx Renal Disease: Yes Hx UTI: Yes (recently) Comment:: On Dialysis 3 times a week - ENDOCRINE Hx Endocrine Disorders: Yes Hx Diabetes: Yes - MUSCULOSKELETAL Hx Musculoskeletal Disorders: Yes Hx Arthritis: Yes (hands) Hx Gout: Yes - PSYCH Hx Psych Problems: No - HEMATOLOGY/ONCOLOGY Hx Hematology/Oncology Disorders: No Hx Blood Transfusions: No Family Medical History Hx Diabetes: Mother, Brother/Sister Hx HTN: Father, Brother/Sister Hx Stroke: Mother, Brother/Sister Physical Exam - General Limitations: No limitations Course Vital Signs 07/02/19 07/03/19 23:12 00:10 Temperature 98.6 F Pulse Rate 65 Pulse Rate [ 71 Pulse Ox Probe] Respiratory 20 18 Rate Blood Pressure 164/88 Blood Pressure 138/71 [Left Arm] Pulse Ox 95 96 Medical Decision Making - Lab Data Lab Results 07/02/19 Range/Units 23:35 Urine Color Brown H Urine Appearance Turbid H Urine pH 6.5 (5.0-8.0) Ur Specific [place] 1.020 (1.002-1.030) Urine Protein 300 mg/dl H (NEGATIVE) Urine Glucose (UA) Negative (NEGATIVE) Urine Ketones Trace H (NEGATIVE) Urine Blood Large H (NEGATIVE) Urine Nitrite Positive H (NEGATIVE) Urine Bilirubin Moderate H (NEGATIVE) Urine Urobilinogen 2.0 H (0.20 - 1.00) E.U./dL Ur Leukocyte Esterase Large H (NEGATIVE) Urine RBC Too numerous to cnt (NONE SEEN) Urine WBC Too numerous to cnt (0-2/hpf) Ur Epithelial Cells 0 - 2 (FEW) Urine Bacteria 3+ Disposition Clinical Impression: UTI (urinary tract infection) Qualifiers: Urinary tract infection type: acute cystitis Hematuria presence: with hematuria Qualified Code(s): N30.01 - Acute cystitis with hematuria Disposition: Home, Self-Care Condition: (2) Stable Instructions: Urinary Tract Infection in Men (ED) Additional Instructions: Return to ED if your symptoms worsen or if you have any concerns. Keflex as directed. Follow-up with your family doctor in 3-5 days as directed. Prescriptions: Cephalexin [Keflex] 500 mg PO TID #21 cap Forms: Patient Portal Access Time of Disposition: 18:14 Quality - Quality Measures Quality Measures: N/A - Blood Pressure Screening Does Patient Have Any of the Following: Active Dx of HTN Blood Pressure Classification: Pre-Hypertensive BP Reading Systolic Measurement: 164 Diastolic Measurement: 88 Screening for High Blood Pressure: Patient Exclusion, Hx of HTN [G9744]
== END 2019-07-03 | disposition home or self-care (01) ==
LOC: ER 23:06
DX: N30.01 Acute cystitis with hematuria (principal)
CPT/HCPCS: 81001; 99283

== ENCOUNTER 2019-09-04 12:04 | Emergency (ER) | payer MEDICARE, BC ==
--- NOTE | 2019-09-04 12:30 | Emergency Department Record ---
History of Present Illness - General Chief Complaint: Fall Injury Stated Complaint: Fall/Weakness Time Seen by Provider: 09/04/19 12:29 Source: Patient, Family Mode of Arrival: Wheelchair Limitations: No limitations - History of Present Illness Initial Comments: The patient is here due to falling and injuring his L hand and R knee yesterday. The patient states he tripped and fell yesterday but did not hit his head or injure his neck or back. Now since this AM he has been very weak and now having diarrhea. There has been no hx of fever, chills, nausea, vomiting, CP or AP. MD Complaint: Fall Onset/Timin -: Days(s) Fall From: Standing When Fall Occurred: [address] Fall Occurred: Home Severity: Moderate Quality: Aching - [place] Coma Scale Eye Response: (4) Open spontaneously Motor Response: (6) Obeys commands Verbal Response: (5) Oriented [place] Total: 15 - Related Data Home Medications Medication Instructions Recorded Confirmed Last Taken Hydralazine HCl 25 mg PO BID 09/04/19 09/04/19 1 Day Ago ~09/03/19 Allergies Allergy/AdvReac Type Severity Reaction Status Date / Time tramadol Allergy Severe PT UNSURE Verified 09/04/19 12:29 OF REACTION codeine [CODEINE] Allergy Intermediate RASH Verified 09/04/19 12:29 propoxyphene [PROPOXYPHENE] Allergy Intermediate RASH Verified 09/04/19 12:29 Travel/Exposure Screening - Travel/Exposure Within Last 30 Days Have you traveled within the last 30 days?: No - Travel/Exposure Within Last Year Have you traveled outside the [place] in the last year?: No - Additonal Travel/Exposure Details Have you been exposed to anyone with a communicable illness?: No - Travel Symptoms Symptom Screening: None Review of Systems Constitutional: Denies: Chills, Fever Eyes: Denies: Eye discharge ENT: Denies: Congestion Respiratory: Denies: Cough, Dyspnea Cardiovascular: Denies: Arrhythmia, Chest pain Endocrine: Reports: Fatigue Gastrointestinal: Denies: Nausea Genitourinary: Denies: Dysuria Musculoskeletal: Denies: Arthralgia Neurological: Denies: Confusion Past Medical History - SOCIAL HISTORY Smoking Status: Never smoker Alcohol Use: None Drug Use: None - RESPIRATORY Hx Respiratory Disorders: Yes Hx Sleep Apnea: No - CARDIOVASCULAR Hx Cardio Disorders: Yes Hx CHF: Yes Hx Edema: Yes Hx Hypertension: Yes - NEURO Hx Neuro Disorders: No Hx Seizures: Yes - GI Hx GI Disorders: Yes Hx Hepatitis/Jaundice: Yes (hepatitis C) - Hx Genitourinary Disorders: Yes Hx Renal Disease: Yes Hx UTI: Yes (recently) Comment:: On Dialysis 3 times a week - ENDOCRINE Hx Endocrine Disorders: Yes Hx Diabetes: Yes - MUSCULOSKELETAL Hx Musculoskeletal Disorders: Yes Hx Arthritis: Yes (hands) Hx Gout: Yes Comment:: RLE amputation - PSYCH Hx Psych Problems: No - HEMATOLOGY/ONCOLOGY Hx Hematology/Oncology Disorders: Yes Hx Cancer: Yes (newly dignosed with liver CA at [facility]) Hx Blood Transfusions: No Family Medical History Any Significant Family History?: Yes Hx Diabetes: Mother, Brother/Sister Hx HTN: Father, Brother/Sister Hx Stroke: Mother, Brother/Sister Physical Exam - General General Appearance: Alert, Oriented x3, Cooperative, No acute distress - Head Head exam: Atraumatic, Normocephalic - Eye Eye exam: Normal appearance, PERRL - ENT Throat exam: Normal inspection. negative: Tonsillar erythema, Tonsillar exudate - Neck Neck exam: Normal inspection, Full ROM. negative: Tenderness - Respiratory Respiratory exam: Normal lung sounds bilaterally. negative: Respiratory distress, Rhonchi, Stridor, Wheezes - Cardiovascular Cardiovascular Exam: Regular rate, Normal rhythm, Normal heart sounds. negative: Diastolic murmur - Rectal Rectal exam: Deferred - Extremities Extremities exam: Tenderness (L dorsal hand and R knee.). negative: Normal inspection (There is bruising and tenderness to the L dorsal hand. 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 negative: Altered, Motor sensory deficit - Psychiatric Psychiatric exam: negative: Anxious Course Vital Signs 09/04/19 12:08 Temperature 97.7 F Pulse Rate 71 Respiratory 18 Rate Blood Pressure 138/70 Pulse Ox 97 - Reevaluation(s) Reevaluation #1: The patient is doing better but continues to have loose stools. The patient denies any recent Abx use and states he has a hx of similar issues many times in the past with loose watery stools. The weakness is improved. I did offer to admit the patient to [facility] for monitoring and dialysis but the patient refused and would like to keep his appointment for tomorrow at dialysis. He is encouraged to return to the ER for any worsening issues. 09/04/19 14:01 Medical Decision Making - Data Complexity MDM Data: Labs Ordered and/or Reviewed, X-Ray Ordered and/or Reviewed - Lab Data Result diagrams: 09/04/19 12:43 09/04/19 12:43 - Radiology Data Radiology results: Report reviewed (L hand and R knee: Neg for any acute changes.) Disposition Disposition: Discharge Clinical Impression: Chronic renal failure Qualifiers: Chronic kidney disease stage: unspecified stage Qualified Code(s): N18.9 - Chronic kidney disease, unspecified Diarrhea Qualifiers: Diarrhea type: unspecified type Qualified Code(s): R19.7 - Diarrhea, unspecified Disposition: Home, Self-Care Condition: (2) Stable Instructions: Fall Prevention for Older Adults (ED), Contusion in Adults (ED) Additional Instructions: Please rest and take the [place] for pain and then Tylenol low dose. Please see your doctor tomorrow if not better. Return to the ER for any worsening issues. Forms: Patient Portal Access Time of Disposition: 14:03 Quality - Quality Measures Quality Measures: N/A - Blood Pressure Screening View Details: Yes Does Patient Have Any of the Following: No Blood Pressure Classification: Pre-Hypertensive BP Reading Systolic Measurement: 138 Diastolic Measurement: 70 Screening for High Blood Pressure: < Pre-Hypertensive BP, F/U Documented > [G8950] Pre-Hypertensive Follow-up Interventions: Referral to alternative/primary care provider.
[2019-09-04 12:55] LABS: ABSOLUTE NEUTROPHIL COUNT 2.72; EOS % 1.3 % (0-6); GRAN % 70.7 % (47-80); HEMATOCRIT 29.4 % (42.0-52.0); HEMOGLOBIN 8.9 gm/dl (14.0-18.0); LYMPH % 15.8 % (16-45); MEAN CORPUSCULAR HGB CONC 30.3 g/dl (32-36); MEAN PLATELET VOLUME 11.1 fl (7.4-10.4); MONO % 12.2 % (0-9); PLATELET COUNT 70 K/uL (130-400); RED BLOOD COUNT 3.16 M/uL (4.40-5.70); RED CELL DISTRIBUTION WIDTH 16.8 % (11.5-14.5); WHITE BLOOD COUNT W/O DIFF 3.9 K/uL (4.2-12.2)
[2019-09-04 13:00] LABS: MEAN CORPUSCULAR HEMOGLOBIN 28.1 pg (27-33)
[2019-09-04 13:11] LABS: CREATININE 7.7 mg/dL (0.7-1.2)
[2019-09-04 13:12] LABS: BILIRUBIN,TOTAL 1.2 mg/dL (0.2-1.0); TOTAL PROTEIN 7.5 g/dL (6.6-8.7)
[2019-09-04 13:17] LABS: ALB/GLOB RATIO 0.6 (1.1-1.8); ALBUMIN 2.9 g/dL (4.0-5.0)
[2019-09-04] MEDS ORDERED: LOPERAMIDE 2 MG CAPSULE PO ONE (13:21)
--- NOTE | 2019-09-04 13:44 | RADIOLOGY REPORT ---
EXAMINATION: Left Hand, Minimum Three Views EXAM DATE: 09/04/2019 1:17 PM TECHNIQUE: PA, lateral, and oblique INDICATION: trauma Technologist note: Fall COMPARISON: None ENCOUNTER: Initial FINDINGS: No acute fractures are identified. Slight deformity of the distal fifth metacarpal, likely from prior trauma. Joint spaces are maintained. Severe vascular calcifications. IMPRESSION: No evidence of acute fracture or dislocation of the left hand. Dictated by: Nelli Iglesias MD on 09/04/2019 1:40 PM. .
--- NOTE | 2019-09-04 13:45 | RADIOLOGY REPORT ---
EXAMINATION: Right Knee, Three Views EXAM DATE: 09/04/2019 1:17 PM TECHNIQUE: Frontal, lateral, and oblique INDICATION: trauma COMPARISON: None ENCOUNTER: Initial FINDINGS: There are extensive vascular calcifications. There is a [id number] amputation. The bones are pedro neralized. The medial and lateral joint space is maintained. Small patellar osteophytes. Small joint effusion. No fracture or destructive bony lesion. No dislocation. Atrophic muscles. IMPRESSION: No acute traumatic findings. Dictated by: Doug Yee MD on 09/04/2019 1:42 PM. .
[2019-09-04] MEDS ORDERED: HYDROCODONE/APAP 5/325MG TABLET PO ONE (14:03)
== END 2019-09-04 14:16 | disposition home or self-care (01) ==
LOC: ER 12:04
DX: S60.222A Contusion of left hand, initial encounter (principal); M25.562 Pain in left knee; R53.1 Weakness; E11.22 Type 2 diabetes mellitus with diabetic chronic kidney disease; I13.2 Hypertensive heart and chronic kidney disease with heart failure and with stage 5 chronic kidney disease, or end stage renal disease; N18.6 End stage renal disease; R19.7 Diarrhea, unspecified; C22.8 Malignant neoplasm of liver, primary, unspecified as to type; I10 Essential (primary) hypertension; I50.9 Heart failure, unspecified; Z99.2 Dependence on renal dialysis; Z79.4 Long term (current) use of insulin; W00.0XXA Fall on same level due to ice and snow, initial encounter; Y92.009 Unspecified place in unspecified non-institutional (private) residence as the place of occurrence of the external cause
CPT/HCPCS: 80053; 85025; 93005; 93010; 99284